=== PATIENT | female | born 1960 | race Caucasian/White ===

== ENCOUNTER → 2017-02-12 | Outpatient (CLI) | payer MEDICARE, MEDICAID ==
[~2017-02-12] MED LIST: KETOROLAC TROMETH 60MG/2ML VIAL IM ONE
[2017-02-12 09:30] VITALS: BP 165/106
[2017-02-12 11:40] VITALS: BP 173/100
[2017-02-12 17:00] LABS: Basophils # (auto) 0 uL; Basophils % (auto) 0.6 % (0.0-2.0); DEFINITIVE VIEW TRANSMISSION; Eosinophils # (auto) 0.1 uL; Eosinophils % (auto) 1.9 % (0.0-7.0); Hematocrit 32.5 % (36.0-46.0); Lymphocytes # (auto) 2.4 uL; Lymphocytes % (auto) 33.9 % (10.0-50.0); Mean Corpuscular Hemoglobin 22.9 pg (28.0-32.0); Mean Corpuscular Hgb Conc. 30.7 g/dL (32.0-36.0); Mean Corpuscular Volume 74.6 fL (80.0-100.0); Mean Platelet Volume 9.8 fL (7.4-10.4); Monocytes # (auto) 0.5 uL; Monocytes % (auto) 7.4 % (0.0-12.0); Neutrophils # (auto) 4.1 uL; Neutrophils % (auto) 56.2 % (37.0-80.0); Platelet Count (auto) 455 10^3/uL (140-450); Red Cell Distribution Width 17.5 % (11.6-16.0); White Blood Cell 7.2 10^3/uL (4.4-10.8)
[2017-02-12 17:10] LABS: Albumin 3.7 g/dL (3.4-5.0); Alkaline Phosphatase 90 U/L (45-117); Anion Gap 10 (5-15); Aspartate Aminotransferase 12 U/L (15-37); BUN/Creatinine Ratio 26.7; Bilirubin, Direct < 0.1 mg/dL (0-0.2); Bilirubin, Total 0.2 mg/dL (0.2-1.0); Blood Urea Nitrogen 12 mg/dL (7-18); Calcium 8.8 mg/dL (8.5-10.1); Carbon Dioxide 27 mmol/L (21-32); Chloride 105 mmol/L (98-107); Cholesterol 162 mg/dL (< 200); GFR African American 187 mL/min; GFR Non-African American 154 mL/min; Glucose 82 mg/dL (74-106); HDL Cholesterol 46 mg/dL (40-59); LDL Cholesterol 114 mg/dL (< 100); Potassium 4.2 mmol/L (3.5-5.1); Sodium 142 mmol/L (136-145); Total Protein 7.8 g/dL (6.4-8.2); Triglycerides 123 mg/dL (< 150)
== END | disposition home or self-care (01) ==
LOC: CHF HDHVI 09:38
PROVIDERS: ATTEND Internal Medicine Cardiovascular Disease
DX: I10 Essential (primary) hypertension (principal); E78.00 Pure hypercholesterolemia, unspecified; K74.1 Hepatic sclerosis; E11.9 Type 2 diabetes mellitus without complications; E03.9 Hypothyroidism, unspecified; D64.9 Anemia, unspecified; E55.9 Vitamin D deficiency, unspecified; R89.9 Unspecified abnormal finding in specimens from other organs, systems and tissues
CPT/HCPCS: 36415; 80048; 80061; 80076; 82306; 83036; 84443; 85025; 87205; J1885

== ENCOUNTER → 2017-06-04 | Outpatient (CLI) | payer MEDICARE, OTHER ==
[~2017-06-04] MED LIST changes: +BACITRACIN TOP OINT 1 UD PKG TOP ONE; -KETOROLAC TROMETH 60MG/2ML VIAL IM ONE; +MUPIROCIN 2% OINT 22GM ONE
[2017-06-04 15:05] VITALS: BP 153/83
[2017-06-04 17:37] VITALS: BP 148/86
== END | disposition home or self-care (01) ==
LOC: CHF HDHVI 15:03
PROVIDERS: ATTEND Internal Medicine Cardiovascular Disease
DX: I11.0 Hypertensive heart disease with heart failure (principal); I50.9 Heart failure, unspecified; E11.9 Type 2 diabetes mellitus without complications
CPT/HCPCS: G0463

== ENCOUNTER → 2017-10-29 | Outpatient (CLI) | payer MEDICARE, OTHER ==
[2017-10-29 11:46] LABS: Basophils # (auto) 0.1 uL; Basophils % (auto) 1.4 % (0.0-2.0); Eosinophils # (auto) 0.2 uL; Hematocrit 41.9 % (36.0-46.0); Hemoglobin 13.5 g/dL (12.2-16.2); Lymphocytes # (auto) 1.9 uL; Lymphocytes % (auto) 34.6 % (10.0-50.0); Mean Corpuscular Hemoglobin 30.9 pg (28.0-32.0); Mean Corpuscular Hgb Conc. 32.3 g/dL (32.0-36.0); Mean Corpuscular Volume 95.6 fL (80.0-100.0); Monocytes # (auto) 0.4 uL; Monocytes % (auto) 6.7 % (0.0-12.0); Neutrophils % (auto) 54.3 % (37.0-80.0); Nucleated Red Blood Cells % 0.7 %; Platelet Count (auto) 238 10^3/uL (140-450); Red Blood Cells 4.38 10^6/uL (4.0-5.20); Red Cell Distribution Width 13.5 % (11.8-14.3); White Blood Cell 5.6 10^3/uL (4.4-10.8)
[2017-10-29 12:06] LABS: % Iron Saturation 34.2 % (15-50)
== END | disposition home or self-care (01) ==
LOC: LAB 08:34
PROVIDERS: ATTEND Internal Medicine Cardiovascular Disease
DX: D64.9 Anemia, unspecified (principal); R79.89 Other specified abnormal findings of blood chemistry; E61.1 Iron deficiency
CPT/HCPCS: 36415; 82728; 83540; 83550; 85025

== ENCOUNTER → 2018-02-06 | Outpatient (CLI) | payer MEDICARE, OTHER ==
[2018-02-06 15:52] LABS: Basophils # (auto) 0.1 uL; Basophils % (auto) 0.9 % (0.0-2.0); Eosinophils # (auto) 0.2 uL; Eosinophils % (auto) 3.2 % (0.0-7.0); Hematocrit 39.7 % (36.0-46.0); Hemoglobin 12.7 g/dL (12.2-16.2); Lymphocytes # (auto) 2.4 uL; Lymphocytes % (auto) 31.1 % (10.0-50.0); Mean Corpuscular Hemoglobin 30.5 pg (28.0-32.0); Mean Corpuscular Hgb Conc. 31.9 g/dL (32.0-36.0); Mean Corpuscular Volume 95.5 fL (80.0-100.0); Monocytes # (auto) 0.6 uL; Monocytes % (auto) 7.2 % (0.0-12.0); Neutrophils # (auto) 4.5 uL; Neutrophils % (auto) 57.6 % (37.0-80.0); Nucleated Red Blood Cells % 0.3 %; Platelet Count (auto) 233 10^3/uL (140-450); Red Blood Cells 4.16 10^6/uL (4.0-5.20); Red Cell Distribution Width 13.6 % (11.8-14.3); White Blood Cell 7.7 10^3/uL (4.4-10.8)
[2018-02-06 16:05] LABS: Albumin 3.4 g/dL (3.4-5.0); Bilirubin, Total 0.2 mg/dL (0.2-1.0); Potassium 4.4 mmol/L (3.5-5.1); Total Protein 7.5 g/dL (6.4-8.2)
== END | disposition home or self-care (01) ==
LOC: LAB 11:33
PROVIDERS: ATTEND Internal Medicine
DX: I10 Essential (primary) hypertension (principal); D64.9 Anemia, unspecified; E11.9 Type 2 diabetes mellitus without complications; E78.00 Pure hypercholesterolemia, unspecified; E03.9 Hypothyroidism, unspecified
CPT/HCPCS: 36415; 80053; 85025

== ENCOUNTER → 2018-05-29 | Outpatient (CLI) | payer MEDICARE, OTHER ==
[2018-05-29 18:00] VITALS: BP 136/84
== END | disposition home or self-care (01) ==
LOC: CHF HDHVI 15:59
PROVIDERS: ATTEND Internal Medicine Cardiovascular Disease
DX: E78.5 Hyperlipidemia, unspecified (principal); E66.01 Morbid (severe) obesity due to excess calories; G89.29 Other chronic pain
CPT/HCPCS: G0463

== ENCOUNTER → 2018-07-23 | Outpatient (CLI) | payer MEDICARE, MEDICAID ==
[~2018-07-23] MED LIST changes: -BACITRACIN TOP OINT 1 UD PKG TOP ONE; +IOHEXOL 350 MG/ML 100ML IJ ONE; -MUPIROCIN 2% OINT 22GM ONE
[2018-07-23 12:45] VITALS: BP 170/92
[2018-07-23 13:22] VITALS: BP 160/95
== END | disposition home or self-care (01) ==
LOC: Rad HDHVI 12:36
PROVIDERS: ATTEND Internal Medicine Cardiovascular Disease
DX: M19.011 Primary osteoarthritis, right shoulder (principal); M50.822 Other cervical disc disorders at C5-C6 level
CPT/HCPCS: 70491; 82565; G0463; Q9967

== ENCOUNTER → 2018-12-02 | Outpatient (CLI) | payer MEDICARE, MEDICAID | END | disposition home or self-care (01) | LOC: Rad HDHVI 12:40 | PROVIDERS: ATTEND Internal Medicine Cardiovascular Disease | DX: I20.9 Angina pectoris, unspecified (principal); I10 Essential (primary) hypertension | CPT/HCPCS: 93306 ==

== ENCOUNTER → 2019-12-01 | Outpatient (CLI) | payer MEDICARE, MEDICAID | END | disposition home or self-care (01) | LOC: Rad HDHVI 09:46 | PROVIDERS: ATTEND Internal Medicine | DX: I70.0 Atherosclerosis of aorta (principal); M85.88 Other specified disorders of bone density and structure, other site; I51.7 Cardiomegaly; R09.89 Other specified symptoms and signs involving the circulatory and respiratory systems | CPT/HCPCS: 71046 ==

== ENCOUNTER → 2019-12-09 | Outpatient (CLI) | payer MEDICARE, MEDICAID | END | disposition home or self-care (01) | LOC: Rad HDHVI 10:25 | PROVIDERS: ATTEND Internal Medicine | DX: I70.0 Atherosclerosis of aorta (principal); R06.02 Shortness of breath; R42 Dizziness and giddiness; M25.562 Pain in left knee; M25.561 Pain in right knee; R09.89 Other specified symptoms and signs involving the circulatory and respiratory systems; I51.7 Cardiomegaly; M46.00 Spinal enthesopathy, site unspecified | CPT/HCPCS: 71046 ==

== ENCOUNTER → 2020-05-09 | Outpatient (CLI) | payer MEDICARE, OTHER | END | disposition home or self-care (01) | LOC: Rad HDHVI 09:21 | PROVIDERS: ATTEND Internal Medicine Cardiovascular Disease | DX: S82.102A Unspecified fracture of upper end of left tibia, initial encounter for closed fracture (principal); M17.12 Unilateral primary osteoarthritis, left knee; M25.562 Pain in left knee; G47.39 Other sleep apnea; X58.XXXA Exposure to other specified factors, initial encounter; Y93.89 Activity, other specified; Y92.89 Other specified places as the place of occurrence of the external cause; Y99.8 Other external cause status; M25.462 Effusion, left knee; M79.89 Other specified soft tissue disorders | CPT/HCPCS: 73700 ==

== ENCOUNTER → 2020-12-26 | Outpatient (CLI) | payer MEDICARE, OTHER | END | disposition home or self-care (01) | LOC: Rad HDHVI 08:37 | PROVIDERS: ATTEND Internal Medicine Cardiovascular Disease | DX: I35.1 Nonrheumatic aortic (valve) insufficiency (principal); I50.33 Acute on chronic diastolic (congestive) heart failure; R00.2 Palpitations | CPT/HCPCS: 93306 ==

== ENCOUNTER → 2022-11-06 | Outpatient (CLI) | payer MEDICARE, MEDICAID ==
[~2022-11-06] MED LIST changes: -IOHEXOL 350 MG/ML 100ML IJ ONE; +READI-CAT 2 (BARIUM SULF)(VANILLA SMOOTHIE) 450ML ONE
[2022-11-06 12:01] LABS: Basophils # (auto) 0.1 10 ^3/uL (0-0.2); Basophils % (auto) 0.8 % (0.0-2.0); Eosinophils # (auto) 0.2 10 ^3/uL (0-0.8); Eosinophils % (auto) 2.5 % (0.0-7.0); Hematocrit 41.9 % (36.0-46.0); Hemoglobin 13.6 g/dL (12.2-16.2); Lymphocytes # (auto) 2.1 10 ^3/uL (0.4-5.4); Mean Corpuscular Hemoglobin 30.6 pg (28.0-32.0); Mean Corpuscular Hgb Conc. 32.4 g/dL (32.0-36.0); Mean Corpuscular Volume 94.5 fL (80.0-100.0); Monocytes # (auto) 0.5 10 ^3/uL (0-1.3); Monocytes % (auto) 7.4 % (0.0-12.0); Neutrophils # (auto) 4.1 10 ^3/uL (1.6-8.6); Neutrophils % (auto) 59.3 % (37.0-80.0); Nucleated Red Blood Cells % 0.1 %; Red Blood Cells 4.44 10^6/uL (4.0-5.20); Red Cell Distribution Width 13.9 % (11.8-14.3); White Blood Cell 6.9 10^3/uL (4.4-10.8)
[2022-11-06 15:15] LABS: Potassium 3.9 mmol/L (3.5-5.1)
[2022-11-06 15:28] LABS: Albumin 3.5 g/dL (3.4-5.0); BUN/Creatinine Ratio 17.4; Bilirubin, Total 0.4 mg/dL (0.2-1.0); Calcium 8.6 mg/dL (8.5-10.1)
[2022-11-06 17:42] LABS: Free T4 (Free Thyroxine) 1.38 ng/dL (0.89-1.76)
== END | disposition home or self-care (01) ==
LOC: Rad HDHVI 09:16
PROVIDERS: ATTEND Internal Medicine Cardiovascular Disease
DX: E78.00 Pure hypercholesterolemia, unspecified (principal); E55.9 Vitamin D deficiency, unspecified
CPT/HCPCS: 36415; 80053; 80061; 82306; 82607; 83036; 84439; 84443; 85025

== ENCOUNTER → 2023-01-02 | Outpatient (CLI) | payer MEDICARE, OTHER ==
[~2023-01-02] MED LIST changes: +FUROSEMIDE 100 MG/10ML VIAL IV ONE; +FUROSEMIDE 20 MG/2 ML VIAL ONE; +FUROSEMIDE INJECTION 10 ML ONE; +POTASSIUM CHL 20 Meq TABLET PO ONE; -READI-CAT 2 (BARIUM SULF)(VANILLA SMOOTHIE) 450ML ONE
[2023-01-02 14:15] VITALS: BP 145/62
[2023-01-02 15:05] VITALS: BP 145/62
== END | disposition home or self-care (01) ==
LOC: CHF HDHVI 14:18
PROVIDERS: ATTEND Internal Medicine Cardiovascular Disease
DX: E87.70 Fluid overload, unspecified (principal); E78.00 Pure hypercholesterolemia, unspecified
CPT/HCPCS: 96374; G0463; J1940

== ENCOUNTER 2023-05-10 08:54 | Inpatient (IN) | payer MEDICARE, OTHER ==
[~2023-05-10] VITALS: Ht 170.2 cm; Wt 120.8 kg
[~2023-05-10 08:54] MED LIST changes: +CHOL4POW44 PO; +DICL1GEL73 TOP; +ELUX1TAB2 PO; +FURO40TA4 PO; -FUROSEMIDE 100 MG/10ML VIAL IV ONE; -FUROSEMIDE 20 MG/2 ML VIAL ONE; -FUROSEMIDE INJECTION 10 ML ONE; +LEVO175T4 PO; +METO-517 PO; +MIRA50TA OR; +PANC3600; -POTASSIUM CHL 20 Meq TABLET PO ONE
[2023-05-10] MEDS ORDERED: SODIUM CHLORIDE 0.9% 1,000 ML IV ONE ×2 (09:30→17:45)
[2023-05-10] MEDS ORDERED: levoFLOXacin 750MG 150 ML IV ONE (09:30)
[2023-05-10 10:00] VITALS: PULSE 105; RESP 16; O2SAT 96
[2023-05-10 10:52] LABS: Basophils # (auto) 0.1 10 ^3/uL (0-0.2); Basophils % (auto) 0.6 % (0.0-2.0); Eosinophils # (auto) 0 10 ^3/uL (0-0.8); Eosinophils % (auto) 0.1 % (0.0-7.0); Hematocrit 46.7 % (36.0-46.0); Hemoglobin 15.3 g/dL (12.2-16.2); Lymphocytes % (auto) 21.1 % (10.0-50.0); Mean Corpuscular Hemoglobin 30.8 pg (28.0-32.0); Mean Corpuscular Hgb Conc. 32.7 g/dL (32.0-36.0); Mean Corpuscular Volume 94.2 fL (80.0-100.0); Monocytes # (auto) 0.7 10 ^3/uL (0-1.3); Monocytes % (auto) 5.1 % (0.0-12.0); Neutrophils # (auto) 10.5 10 ^3/uL (1.6-8.6); Neutrophils % (auto) 73.1 % (37.0-80.0); Nucleated Red Blood Cells % 0.1 %; Red Blood Cells 4.96 10^6/uL (4.0-5.20); White Blood Cell 14.3 10^3/uL (4.4-10.8)
[2023-05-10 11:17] LABS: Urine Bacteria MOD /hpf (None Seen); Urine Blood Negative /uL (Negative); Urine Clarity CLOUDY (Clear); Urine Color Yellow (Yellow); Urine Mucus FEW (None Seen); Urine Protein, UAD 2+ (Negative); Urine Specific Gravity 1.025 (1.001-1.035); Urine Urobilinogen Normal (Negative); Urine WBC 185 /hpf (0 - 5); Urine WBC Clumps PRESENT /hpf (None Seen)
[2023-05-10 12:09] LABS: Alkaline Phosphatase 182 U/L (45-117); Anion Gap 17 (5-15); Aspartate Aminotransferase 68 U/L (15-37); BUN/Creatinine Ratio 10.2 (10.0-20.0); Blood Urea Nitrogen 32 mg/dL (7-18); Carbon Dioxide 25 mmol/L (21-32); Chloride 79 mmol/L (98-107); GFR African American 19 mL/min; GFR Non-African American 16 mL/min; Glucose 158 mg/dL (74-106); Potassium 3.4 mmol/L (3.5-5.1); Sodium 121 mmol/L (136-145)
[2023-05-10 12:10] LABS: Alanine Aminotransferase 33 U/L (13-56); Albumin 2.1 g/dL (3.4-5.0); Bilirubin, Total 0.6 mg/dL (0.2-1.0); Calcium 7.9 mg/dL (8.5-10.1); Total Protein 6.5 g/dL (6.4-8.2)
[2023-05-10] MEDS ORDERED: HYDR-4795 PO (12:20)
[2023-05-10] MEDS ORDERED: METOCLOPRAMIDE HCL 5MG/ml INJ 2ml VIAL IV ONE (13:15)
[2023-05-10] MEDS ORDERED: LINA290C OR (14:44)
[2023-05-10] MEDS ORDERED: PANT40TA2 PO (14:44)
[2023-05-10] MEDS ORDERED: LEVO175T2 PO (14:44)
[2023-05-10] MEDS ORDERED: BUMEX2MG PO (14:44)
[2023-05-10] MEDS ORDERED: PANC12002 PO (14:44)
[2023-05-10] MEDS ORDERED: ACETAMINOPHEN 325 MG TAB PO PRN (17:45)
[2023-05-10] MEDS ORDERED: DOCUSATE SOD 100 MG CAP PO PRN (17:45)
[2023-05-10] MEDS ORDERED: VANCOMYCIN 1GM/250ML 250 ML IV ONE (18:00)
[2023-05-10] MEDS ORDERED: VANCOMYCIN PER PHARMACY 0 MG IV SCH (18:00)
[2023-05-10] MEDS: NOREPINEPHRINE 8 MG/250ML KIT 250 ML IV SCH (18:15)
[2023-05-10 18:57] LABS: BUN/Creatinine Ratio 10.2 (10.0-20.0); Calcium 7.9 mg/dL (8.5-10.1)
[2023-05-10 19:13] LABS: Lactic Acid w/Reflex 4.7 mmol/L (0.4-2.0)
[2023-05-10 19:27] LABS: Potassium 1.9 mmol/L (3.5-5.1)
[2023-05-10 19:30] VITALS: PULSE 132; RESP 19; O2SAT 96
[2023-05-10 19:42] VITALS: PULSE 20; RESP 18; O2SAT 96
[2023-05-10] MEDS: HYDROmorphone HCL 2 MG/ML VL/or syr IV PRN (19:44)
[2023-05-10] MEDS ORDERED: POTASSIUM EFFERVESENT TAB 25 MEQ PO ONE (19:45)
[2023-05-10] MEDS: ONDANSETRON HCL 4 MG/2 ML VIAL IV PRN (19:45)
[2023-05-10] MEDS ORDERED: MAGNESIUM SULFATE 1GM/100ML 100 ML IV ONE (19:45)
[2023-05-10] MEDS: POTASSIUM CHL 20MEQ/100ML 100 ML IV SCH ×2 (20:20→21:57)
[2023-05-10] MEDS: ALBUMIN 25% 50 ML IV SCH (21:43)
[2023-05-10] MEDS: ELUXADOLINE 100 MG PO SCH (22:00)
[2023-05-10 22:10] LABS: Calcium 7.6 mg/dL (8.5-10.1); Magnesium 1.9 mg/dL (1.6-2.6)
[2023-05-10 22:12] LABS: BUN/Creatinine Ratio 9.9 (10.0-20.0)
[2023-05-10] MEDS: PIPERACILLIN-TAZOB 3.375GM 100 ML IV SCH (22:24)
[2023-05-10 22:46] LABS: Potassium 2.9 mmol/L (3.5-5.1)
[2023-05-10] MEDS: SODIUM CHLOR 0.9% PF (SALINE LOCK) 10ML VIAL/SYR IV SCH (22:51)
[2023-05-11] VITALS (35 sets, daily range): BP systolic 81–107; BP diastolic 52–77; PULSE 100–118; RESP 12–31; TEMP 97.9–98.6; O2SAT 95–99
[2023-05-11] MEDS: ONDANSETRON HCL 4 MG/2 ML VIAL IV PRN ×2 (00:26→15:56)
[2023-05-11] MEDS: HYDROmorphone HCL 2 MG/ML VL/or syr IV PRN ×2 (00:27→21:43)
[2023-05-11] MEDS ORDERED: VANCOMYCIN 1GM/250ML 250 ML IV ONE (00:30)
[2023-05-11 01:29] LABS: Albumin 2.5 g/dL (3.4-5.0); BUN/Creatinine Ratio 10.2 (10.0-20.0); Calcium 7.6 mg/dL (8.5-10.1)
[2023-05-11 01:31] LABS: Bilirubin, Total 0.8 mg/dL (0.2-1.0); Total Protein 6.6 g/dL (6.4-8.2)
[2023-05-11 01:33] LABS: Potassium 2.2 mmol/L (3.5-5.1)
[2023-05-11] MEDS: POTASSIUM CHL 20MEQ/100ML 100 ML IV SCH ×3 (01:50→05:45)
[2023-05-11] MEDS: LORazepam 2MG/ML-1ML VIAL IV PRN ×2 (02:06→15:55)
[2023-05-11] MEDS: ALBUMIN 25% 50 ML IV SCH ×2 (02:21→09:32)
[2023-05-11] MEDS: NOREPINEPHRINE 8 MG/250ML KIT 250 ML IV SCH ×2 (03:47→19:27)
[2023-05-11] MEDS: SODIUM CHLOR 0.9% PF (SALINE LOCK) 10ML VIAL/SYR IV SCH ×3 (05:53→21:33)
[2023-05-11] MEDS: LEVOTHYROXINE SODIUM 25 MCG TAB PO SCH (06:28)
[2023-05-11] MEDS: LEVOTHYROXINE SODIUM 100 MCG TAB PO SCH (06:29)
[2023-05-11] MEDS ORDERED: LEVOTHYROXINE SODIUM 112 MCG TAB PO SCH (07:00)
[2023-05-11] MEDS ORDERED: LEVOTHYROXINE SODIUM 50 MCG TAB PO SCH (07:00)
[2023-05-11 08:26] LABS: BUN/Creatinine Ratio 10.6 (10.0-20.0); Calcium 7.7 mg/dL (8.5-10.1)
[2023-05-11 08:42] LABS: Potassium 2.7 mmol/L (3.5-5.1)
[2023-05-11] MEDS: PIPERACILLIN-TAZOB 3.375GM 100 ML IV SCH ×2 (09:31→21:45)
[2023-05-11] MEDS: ENOXAPARIN SOD 30 MG/0.3 ML SYRINGE SC SCH (09:32)
[2023-05-11] MEDS: SODIUM CHLORIDE 0.9% 1,000 ML IV SCH (09:45)
[2023-05-11] MEDS: ELUXADOLINE 100 MG PO SCH ×2 (10:00→21:48)
[2023-05-11] MEDS: POTASSIUM EFFERVESENT TAB 25 MEQ PO SCH ×2 (10:55→21:23)
[2023-05-11 20:27] LABS: BUN/Creatinine Ratio 10.4 (10.0-20.0); Calcium 7.2 mg/dL (8.5-10.1)
[2023-05-11 20:32] LABS: Potassium 2.9 mmol/L (3.5-5.1)
[2023-05-11] MEDS ORDERED: VANCOMYCIN 500 MG in D5W 5% 100 ML IV ONE (21:00)
[2023-05-12] VITALS (101 sets, daily range): BP systolic 81–150; BP diastolic 38–115; PULSE 101–119; RESP 10–25; TEMP 97.6–98.3; O2SAT 96–100
[2023-05-12] MEDS: NOREPINEPHRINE 8 MG/250ML KIT 250 ML IV SCH ×6 (00:03→21:32)
[2023-05-12] MEDS: HYDROcodone-ACET 5/325MG TAB PO PRN ×3 (00:41→21:49)
[2023-05-12 04:05] LABS: BUN/Creatinine Ratio 11.6 (10.0-20.0); Calcium 7.5 mg/dL (8.5-10.1)
[2023-05-12] MEDS: SODIUM CHLORIDE 0.9% 1,000 ML IV SCH (04:39)
[2023-05-12] MEDS ORDERED: POTASSIUM CHL 20 Meq TABLET PO ONE ×2 (05:15→06:52)
[2023-05-12] MEDS: HYDROmorphone HCL 2 MG/ML VL/or syr IV PRN ×2 (05:35→10:14)
[2023-05-12] MEDS: LEVOTHYROXINE SODIUM 100 MCG TAB PO SCH (06:54)
[2023-05-12] MEDS: LEVOTHYROXINE SODIUM 25 MCG TAB PO SCH (06:54)
[2023-05-12] MEDS: SODIUM CHLOR 0.9% PF (SALINE LOCK) 10ML VIAL/SYR IV SCH ×3 (06:56→21:46)
[2023-05-12] MEDS: VASOPRESSIN 20 UNITS in SODIUM CHL 0.9% 99 ML IV SCH (08:19)
[2023-05-12] MEDS: ENOXAPARIN SOD 30 MG/0.3 ML SYRINGE SC SCH (09:50)
[2023-05-12] MEDS: MAGNESIUM SULFATE 1GM/100ML 100 ML IV SCH ×2 (09:50→11:05)
[2023-05-12] MEDS: PIPERACILLIN-TAZOB 3.375GM 100 ML IV SCH ×2 (09:51→21:46)
[2023-05-12] MEDS: ELUXADOLINE 100 MG PO SCH ×2 (10:00→21:46)
[2023-05-12] MEDS ORDERED: SODIUM CHLORIDE 0.9% 1,000 ML IV ONE (11:00)
[2023-05-12] MEDS: POTASSIUM CHL 20MEQ/100ML 100 ML IV SCH ×2 (11:45→13:08)
[2023-05-12] MEDS ORDERED: VANCOMYCIN 500 MG in D5W 5% 100 ML IV ONE (15:00)
[2023-05-12] MEDS: PHENYLEPHRINE INJ 40 MG in SODIUM CHL 0.9% 246 ML IV SCH (15:46)
[2023-05-13] VITALS (98 sets, daily range): BP systolic 75–146; BP diastolic 32–109; PULSE 107–122; RESP 11–33; TEMP 98–98.9; O2SAT 88–100
[2023-05-13] MEDS: VASOPRESSIN 20 UNITS in SODIUM CHL 0.9% 99 ML IV SCH ×3 (00:06→11:28)
[2023-05-13] MEDS: NOREPINEPHRINE 8 MG/250ML KIT 250 ML IV SCH ×4 (02:02→21:18)
[2023-05-13] MEDS: PHENYLEPHRINE INJ 40 MG in SODIUM CHL 0.9% 246 ML IV SCH ×4 (02:03→23:24)
[2023-05-13 04:26] LABS: Hemoglobin 13.6 g/dL (12.2-16.2); Mean Corpuscular Hemoglobin 32.2 pg (28.0-32.0); Mean Corpuscular Volume 94.8 fL (80.0-100.0); Red Blood Cells 4.22 10^6/uL (4.0-5.20); Red Cell Distribution Width 14.1 % (11.8-14.3); White Blood Cell 17.3 10^3/uL (4.4-10.8)
[2023-05-13 04:45] LABS: Band Neutrophils % (manual) 0; Basophils % (manual) 0 (0.0-2.0); Blast Cells 0; Eosinophils % (manual) 0 (0-7); Metamyelocytes % 0; Promyelocytes % 0; Reactive Lymphocytes 0
[2023-05-13] MEDS: ONDANSETRON HCL 4 MG/2 ML VIAL IV PRN ×4 (04:58→18:56)
[2023-05-13] MEDS: SODIUM CHLORIDE 0.9% 1,000 ML IV SCH (04:59)
[2023-05-13] MEDS: SODIUM CHLOR 0.9% PF (SALINE LOCK) 10ML VIAL/SYR IV SCH ×3 (06:04→21:18)
[2023-05-13] MEDS: LEVOTHYROXINE SODIUM 100 MCG TAB PO SCH (06:26)
[2023-05-13] MEDS: LEVOTHYROXINE SODIUM 25 MCG TAB PO SCH (06:26)
[2023-05-13] MEDS: HYDROcodone-ACET 5/325MG TAB PO PRN (07:54)
[2023-05-13 07:58] LABS: Lymphocytes % (manual) 12 (10.0-50.0); Monocytes % (manual) 1 (0-12); Myelocytes % 1; Platelet Estimate Adequate
[2023-05-13 08:50] LABS: Albumin 2.3 g/dL (3.4-5.0); Calcium 7.6 mg/dL (8.5-10.1); Potassium 3.7 mmol/L (3.5-5.1)
[2023-05-13 08:54] LABS: BUN/Creatinine Ratio 11.9 (10.0-20.0); Bilirubin, Total 1.4 mg/dL (0.2-1.0)
[2023-05-13] MEDS: ELUXADOLINE 100 MG PO SCH ×2 (10:00→21:33)
[2023-05-13] MEDS: ENOXAPARIN SOD 30 MG/0.3 ML SYRINGE SC SCH (10:05)
[2023-05-13] MEDS: PIPERACILLIN-TAZOB 3.375GM 100 ML IV SCH (10:05)
[2023-05-13 11:11] LABS: Creatinine, Urine 98 mg/dL (30.0-125.0); Protein, Urine 145.6 mg/dL (0.0-11.9); Urine Protein/Creatinine Ratio 1.49
[2023-05-13] MEDS ORDERED: OPTISON 3ml Vial for INJ IV ONE (11:16)
[2023-05-13] MEDS: PIPERACILLIN-TAZOB 2.25GM 50 ML IV SCH ×2 (11:44→18:55)
[2023-05-13] MEDS: MAGNESIUM SULFATE 1GM/100ML 100 ML IV SCH ×2 (11:44→13:08)
[2023-05-13] MEDS ORDERED: OXYCODONE W/ ACETAMINOPHEN 5/325MG TABLET PO PRN (13:15)
[2023-05-13] MEDS ORDERED: SODIUM CHL 3% 500 ML IV ONE ×2 (13:30→16:15)
[2023-05-13] MEDS ORDERED: HYDROcodone-ACET 7.5/325MG TAB PO PRN (17:30)
[2023-05-13] MEDS ORDERED: HYDROmorphone HCL 2 MG/ML VL/or syr IV PRN (17:30)
[2023-05-13] MEDS: HYDROCODONE ACETAMINOPHEN PO PRN (18:56)
[2023-05-13 19:11] LABS: BUN/Creatinine Ratio 12.8 (10.0-20.0); Calcium 7.3 mg/dL (8.5-10.1); Potassium 3.2 mmol/L (3.5-5.1)
[2023-05-13 19:13] LABS: Sodium Urine < 5 mmol/L (40-220)
[2023-05-13] MEDS ORDERED: POTASSIUM CHL 20 Meq TABLET PO ONE (21:15)
[2023-05-14] VITALS (96 sets, daily range): BP systolic 47–168; BP diastolic 21–106; PULSE 109–126; RESP 12–45; TEMP 97.9–98.4; O2SAT 92–100
[2023-05-14] MEDS: NOREPINEPHRINE 8 MG/250ML KIT 250 ML IV SCH ×3 (01:09→10:52)
[2023-05-14] MEDS: ONDANSETRON HCL 4 MG/2 ML VIAL IV PRN ×3 (02:11→13:50)
[2023-05-14] MEDS: HYDROCODONE ACETAMINOPHEN PO PRN ×5 (02:24→21:03)
[2023-05-14] MEDS: PIPERACILLIN-TAZOB 2.25GM 50 ML IV SCH ×3 (02:24→18:29)
[2023-05-14] MEDS ORDERED: PHENYLEPHRINE HCL 10 MG/ML VL ONE (03:55)
[2023-05-14] MEDS ORDERED: PHENYLEPHRINE IV 250 ML IV ONE ×2 (03:55→08:04)
[2023-05-14] MEDS: PHENYLEPHRINE INJ 40 MG in SODIUM CHL 0.9% 246 ML IV SCH ×2 (04:05→08:36)
[2023-05-14] MEDS: VASOPRESSIN 20 UNITS in SODIUM CHL 0.9% 99 ML IV SCH ×2 (04:13→15:20)
[2023-05-14 04:31] LABS: Basophils # (auto) 0 10 ^3/uL (0-0.2); Eosinophils # (auto) 0 10 ^3/uL (0-0.8); Hematocrit 37.3 % (36.0-46.0); Hemoglobin 12.7 g/dL (12.2-16.2); Lymphocytes # (auto) 2.2 10 ^3/uL (0.4-5.4); Lymphocytes % (auto) 13.7 % (10.0-50.0); Mean Corpuscular Hemoglobin 32.1 pg (28.0-32.0); Mean Corpuscular Volume 94.2 fL (80.0-100.0); Monocytes # (auto) 0.7 10 ^3/uL (0-1.3); Monocytes % (auto) 4.2 % (0.0-12.0); Neutrophils # (auto) 13.2 10 ^3/uL (1.6-8.6); Neutrophils % (auto) 82.1 % (37.0-80.0); Nucleated Red Blood Cells % 0.3 %; Red Blood Cells 3.96 10^6/uL (4.0-5.20); Red Cell Distribution Width 13.8 % (11.8-14.3); White Blood Cell 16.1 10^3/uL (4.4-10.8)
[2023-05-14 04:35] LABS: Potassium 3.5 mmol/L (3.5-5.1)
[2023-05-14 04:43] LABS: Albumin 2.1 g/dL (3.4-5.0); BUN/Creatinine Ratio 13.2 (10.0-20.0); Bilirubin, Total 1.6 mg/dL (0.2-1.0); Calcium 7.5 mg/dL (8.5-10.1); Magnesium 2.3 mg/dL (1.6-2.6); Total Protein 5.5 g/dL (6.4-8.2)
[2023-05-14] MEDS: LEVOTHYROXINE SODIUM 25 MCG TAB PO SCH (06:55)
[2023-05-14] MEDS: LEVOTHYROXINE SODIUM 100 MCG TAB PO SCH (06:55)
[2023-05-14] MEDS: SODIUM CHLOR 0.9% PF (SALINE LOCK) 10ML VIAL/SYR IV SCH ×3 (06:55→22:00)
[2023-05-14] MEDS: ENOXAPARIN SOD 40 MG/0.4 ML SYRINGE SC SCH (09:24)
[2023-05-14] MEDS: POTASSIUM CHL 20MEQ/100ML 100 ML IV SCH ×2 (09:25→11:38)
[2023-05-14] MEDS: BUMETANIDE 2.5mg/10ml (0.25 mg/ml) INJ IV SCH ×2 (09:26→17:34)
[2023-05-14] MEDS: ELUXADOLINE 100 MG PO SCH ×2 (10:00→22:00)
[2023-05-14] MEDS: ALBUMIN 25% 100 ML IV SCH ×2 (10:53→17:34)
[2023-05-14 11:08] LABS: Lactic Acid w/Reflex 4.9 mmol/L (0.4-2.0)
[2023-05-14] MEDS ORDERED: SOD CHL IV SCH (13:00)
[2023-05-14] MEDS: PHENYLEPHRINE INJ 80 MG in SODIUM CHL 0.9% 242 ML IV SCH ×2 (13:00→21:06)
[2023-05-14] MEDS ORDERED: SODIUM BICARBONATE IV SCH (13:00)
[2023-05-14] MEDS ORDERED: SODIUM CHL 3% 500 ML IV ONE (14:30)
[2023-05-14] MEDS: NOREPINEPHRINE BITARTRATE 32 MG in SODIUM CHL 0.9% 218 ML IV SCH (14:34)
[2023-05-14 20:08] LABS: Albumin 1.6 g/dL (3.4-5.0); Potassium 3.1 mmol/L (3.5-5.1)
[2023-05-14 20:11] LABS: BUN/Creatinine Ratio 14.4 (10.0-20.0); Bilirubin, Total 1.7 mg/dL (0.2-1.0); Total Protein 4.1 g/dL (6.4-8.2)
[2023-05-14 20:15] LABS: Calcium 5.2 mg/dL (8.5-10.1)
[2023-05-14] MEDS ORDERED: POTASSIUM CHL 20MEQ/100ML 100 ML IV ONE (21:00)
[2023-05-14] MEDS: METOCLOPRAMIDE HCL 5MG/ml INJ 2ml VIAL IV SCH (22:00)
[2023-05-15] VITALS (96 sets, daily range): BP systolic 89–130; BP diastolic 44–92; PULSE 110–127; RESP 11–32; TEMP 97.6–98.4; O2SAT 66–100
[2023-05-15] MEDS: HYDROCODONE ACETAMINOPHEN PO PRN ×6 (01:06→22:36)
[2023-05-15] MEDS: CALCIUM ACETATE 667 MG CAP PO SCH ×2 (01:27→08:50)
[2023-05-15] MEDS: ALBUMIN 25% 100 ML IV SCH (01:56)
[2023-05-15] MEDS: VASOPRESSIN 20 UNITS in SODIUM CHL 0.9% 99 ML IV SCH ×2 (02:27→13:34)
[2023-05-15 04:16] LABS: Basophils # (auto) 0 10 ^3/uL (0-0.2); Basophils % (auto) 0.2 % (0.0-2.0); Eosinophils # (auto) 0 10 ^3/uL (0-0.8); Eosinophils % (auto) 0.1 % (0.0-7.0); Lymphocytes # (auto) 1.9 10 ^3/uL (0.4-5.4); Lymphocytes % (auto) 10.7 % (10.0-50.0); Mean Corpuscular Hemoglobin 32.1 pg (28.0-32.0); Mean Corpuscular Hgb Conc. 33.4 g/dL (32.0-36.0); Mean Corpuscular Volume 95.9 fL (80.0-100.0); Monocytes # (auto) 0.9 10 ^3/uL (0-1.3); Monocytes % (auto) 5.2 % (0.0-12.0); Neutrophils % (auto) 83.8 % (37.0-80.0); Nucleated Red Blood Cells % 0.2 %; Red Blood Cells 3.76 10^6/uL (4.0-5.20); Red Cell Distribution Width 14.5 % (11.8-14.3); White Blood Cell 17.9 10^3/uL (4.4-10.8)
[2023-05-15] MEDS: PIPERACILLIN-TAZOB 2.25GM 50 ML IV SCH ×3 (04:28→18:11)
[2023-05-15] MEDS: PHENYLEPHRINE INJ 80 MG in SODIUM CHL 0.9% 242 ML IV SCH ×3 (04:28→21:59)
[2023-05-15 04:31] LABS: Potassium 4.1 mmol/L (3.5-5.1)
[2023-05-15 04:38] LABS: Albumin 3.2 g/dL (3.4-5.0); BUN/Creatinine Ratio 13.3 (10.0-20.0); Bilirubin, Total 3.5 mg/dL (0.2-1.0); Calcium 8.3 mg/dL (8.5-10.1); Magnesium 2.4 mg/dL (1.6-2.6); Phosphorus 1.8 mg/dL (2.5-4.90); Total Protein 6.5 g/dL (6.4-8.2)
[2023-05-15] MEDS: BUMETANIDE 2.5mg/10ml (0.25 mg/ml) INJ IV SCH ×2 (05:32→18:10)
[2023-05-15] MEDS: SODIUM CHLOR 0.9% PF (SALINE LOCK) 10ML VIAL/SYR IV SCH ×3 (05:32→21:58)
[2023-05-15] MEDS: METOCLOPRAMIDE HCL 5MG/ml INJ 2ml VIAL IV SCH ×3 (05:32→18:11)
[2023-05-15] MEDS: LEVOTHYROXINE SODIUM 25 MCG TAB PO SCH (06:47)
[2023-05-15] MEDS: LEVOTHYROXINE SODIUM 100 MCG TAB PO SCH (06:48)
[2023-05-15] MEDS: NOREPINEPHRINE BITARTRATE 32 MG in SODIUM CHL 0.9% 218 ML IV SCH (06:53)
[2023-05-15] MEDS ORDERED: SODIUM CHL 3% 250 ML IV ONE (08:15)
[2023-05-15] MEDS: ENOXAPARIN SOD 40 MG/0.4 ML SYRINGE SC SCH (08:50)
[2023-05-15] MEDS: ELUXADOLINE 100 MG PO SCH ×2 (08:52→21:59)
[2023-05-15] MEDS ORDERED: SODIUM PHOSPHATES 40 MEQ in D5W 5% 250 ML IV ONE (10:15)
[2023-05-15] MEDS ORDERED: VANCOMYCIN 500 MG in D5W 5% 100 ML IV ONE (15:00)
[2023-05-15 17:01] LABS: Base Excess -9.6 mmol/L (-2.0-2.0)
[2023-05-15] MEDS ORDERED: METOCLOPRAMIDE HCL 5MG/ml INJ 2ml VIAL IV ONE (21:45)
[2023-05-15] MEDS: SODIUM BICARBONATE 650 MG TAB PO SCH (21:58)
[2023-05-16] VITALS (96 sets, daily range): BP systolic 79–131; BP diastolic 50–85; PULSE 111–125; RESP 9–26; TEMP 98–98.6; O2SAT 90–100
[2023-05-16] MEDS: NOREPINEPHRINE BITARTRATE 32 MG in SODIUM CHL 0.9% 218 ML IV SCH (00:27)
[2023-05-16] MEDS: VASOPRESSIN 20 UNITS in SODIUM CHL 0.9% 99 ML IV SCH ×3 (00:41→22:55)
[2023-05-16] MEDS: HYDROCODONE ACETAMINOPHEN PO PRN ×5 (02:37→21:41)
[2023-05-16] MEDS: PIPERACILLIN-TAZOB 2.25GM 50 ML IV SCH ×3 (02:39→19:06)
[2023-05-16 04:38] LABS: Albumin 2.7 g/dL (3.4-5.0); Calcium 7.9 mg/dL (8.5-10.1); Potassium 3.8 mmol/L (3.5-5.1)
[2023-05-16 04:42] LABS: BUN/Creatinine Ratio 15.1 (10.0-20.0); Bilirubin, Total 2.6 mg/dL (0.2-1.0); Total Protein 5.7 g/dL (6.4-8.2)
[2023-05-16] MEDS: METOCLOPRAMIDE HCL 5MG/ml INJ 2ml VIAL IV SCH ×5 (05:49→21:34)
[2023-05-16] MEDS: SODIUM CHLOR 0.9% PF (SALINE LOCK) 10ML VIAL/SYR IV SCH ×3 (05:50→21:34)
[2023-05-16] MEDS: BUMETANIDE 2.5mg/10ml (0.25 mg/ml) INJ IV SCH ×2 (05:50→19:05)
[2023-05-16] MEDS: PHENYLEPHRINE INJ 80 MG in SODIUM CHL 0.9% 242 ML IV SCH ×3 (05:50→19:09)
[2023-05-16] MEDS: LEVOTHYROXINE SODIUM 100 MCG TAB PO SCH (06:39)
[2023-05-16] MEDS: LEVOTHYROXINE SODIUM 25 MCG TAB PO SCH (06:39)
[2023-05-16] MEDS: SODIUM BICARBONATE 650 MG TAB PO SCH ×2 (09:56→21:34)
[2023-05-16] MEDS: ENOXAPARIN SOD 30 MG/0.3 ML SYRINGE SC SCH (09:57)
[2023-05-16] MEDS: ELUXADOLINE 100 MG PO SCH ×2 (09:58→22:00)
[2023-05-16] MEDS ORDERED: VANCOMYCIN 500 MG in D5W 5% 100 ML IV ONE (12:00)
[2023-05-16] MEDS: CHOLESTYRAMINE 4 GM POWDER PO SCH ×2 (12:06→23:54)
[2023-05-16] MEDS ORDERED: chlorproMAZINE HCL 25 MG/1 ML AMP IM PRN (13:30)
[2023-05-17] VITALS (95 sets, daily range): BP systolic 87–133; BP diastolic 41–85; PULSE 99–119; RESP 10–30; TEMP 97.1–98; O2SAT 89–100
[2023-05-17] MEDS: METOCLOPRAMIDE HCL 5MG/ml INJ 2ml VIAL IV SCH ×4 (01:53→14:00)
[2023-05-17] MEDS: HYDROCODONE ACETAMINOPHEN PO PRN ×4 (01:53→18:30)
[2023-05-17] MEDS: PHENYLEPHRINE INJ 80 MG in SODIUM CHL 0.9% 242 ML IV SCH ×2 (02:00→16:38)
[2023-05-17] MEDS: NOREPINEPHRINE BITARTRATE 32 MG in SODIUM CHL 0.9% 218 ML IV SCH (02:01)
[2023-05-17] MEDS: PIPERACILLIN-TAZOB 2.25GM 50 ML IV SCH ×4 (03:00→19:29)
[2023-05-17] MEDS: BUMETANIDE 2.5mg/10ml (0.25 mg/ml) INJ IV SCH ×2 (06:24→18:29)
[2023-05-17] MEDS: SODIUM CHLOR 0.9% PF (SALINE LOCK) 10ML VIAL/SYR IV SCH ×3 (06:25→22:05)
[2023-05-17] MEDS: LEVOTHYROXINE SODIUM 25 MCG TAB PO SCH (06:35)
[2023-05-17] MEDS: LEVOTHYROXINE SODIUM 100 MCG TAB PO SCH (06:35)
[2023-05-17] MEDS: ELUXADOLINE 100 MG PO SCH ×2 (10:00→22:00)
[2023-05-17] MEDS: VASOPRESSIN 20 UNITS in SODIUM CHL 0.9% 99 ML IV SCH ×2 (10:02→21:09)
[2023-05-17] MEDS: ENOXAPARIN SOD 30 MG/0.3 ML SYRINGE SC SCH (10:21)
[2023-05-17] MEDS: SODIUM BICARBONATE 650 MG TAB PO SCH ×2 (10:21→22:05)
[2023-05-17] MEDS: CHOLESTYRAMINE 4 GM POWDER PO SCH ×2 (11:37→23:18)
[2023-05-17 15:37] LABS: Albumin 2.2 g/dL (3.4-5.0); Potassium 4.5 mmol/L (3.5-5.1)
[2023-05-17 15:42] LABS: BUN/Creatinine Ratio 17.5 (10.0-20.0); Bilirubin, Total 2.3 mg/dL (0.2-1.0); Total Protein 5.4 g/dL (6.4-8.2)
[2023-05-17] MEDS: NYSTATIN (MOUTH-THROAT) 500,000 UNITS/5 ML SUSP MT SCH ×2 (18:27→22:04)
[2023-05-17] MEDS: METOCLOPRAMIDE HCL 5MG/ml INJ 2ml VIAL IV PRN (18:29)
[2023-05-17] MEDS ORDERED: VANCOMYCIN 500 MG in D5W 5% 100 ML IV ONE (20:00)
[2023-05-18] VITALS (96 sets, daily range): BP systolic 84–143; BP diastolic 37–121; PULSE 98–109; RESP 11–38; TEMP 97.6–98.1; O2SAT 77–100
[2023-05-18] MEDS: PHENYLEPHRINE INJ 80 MG in SODIUM CHL 0.9% 242 ML IV SCH ×3 (01:01→23:13)
[2023-05-18] MEDS: HYDROCODONE ACETAMINOPHEN PO PRN ×3 (02:03→17:35)
[2023-05-18] MEDS: METOCLOPRAMIDE HCL 5MG/ml INJ 2ml VIAL IV PRN ×3 (02:30→17:35)
[2023-05-18] MEDS: PIPERACILLIN-TAZOB 2.25GM 50 ML IV SCH ×2 (02:55→11:02)
[2023-05-18 04:46] LABS: Hematocrit 33.6 % (36.0-46.0); Hemoglobin 11.3 g/dL (12.2-16.2); Mean Corpuscular Hemoglobin 31.7 pg (28.0-32.0); Mean Corpuscular Hgb Conc. 33.5 g/dL (32.0-36.0); Mean Corpuscular Volume 94.6 fL (80.0-100.0); Red Blood Cells 3.55 10^6/uL (4.0-5.20); Red Cell Distribution Width 14.5 % (11.8-14.3); White Blood Cell 14.7 10^3/uL (4.4-10.8)
[2023-05-18 04:58] LABS: Anion Gap 14 (5-15); BUN/Creatinine Ratio 20.3 (10.0-20.0); Blood Urea Nitrogen 47 mg/dL (7-18); Carbon Dioxide 20 mmol/L (21-32); Chloride 97 mmol/L (98-107); GFR African American 28 mL/min; GFR Non-African American 23 mL/min; Glucose 148 mg/dL (74-106); Potassium 3.8 mmol/L (3.5-5.1); Sodium 131 mmol/L (136-145)
[2023-05-18 05:16] LABS: Basophils % (manual) 0 (0.0-2.0); Blast Cells 0; Eosinophils % (manual) 0 (0-7); Metamyelocytes % 0; Myelocytes % 0; Promyelocytes % 0; Reactive Lymphocytes 0
[2023-05-18] MEDS: NOREPINEPHRINE BITARTRATE 32 MG in SODIUM CHL 0.9% 218 ML IV SCH (05:50)
[2023-05-18] MEDS: SODIUM CHLOR 0.9% PF (SALINE LOCK) 10ML VIAL/SYR IV SCH ×3 (05:53→21:51)
[2023-05-18] MEDS: NYSTATIN (MOUTH-THROAT) 500,000 UNITS/5 ML SUSP MT SCH ×4 (06:11→21:51)
[2023-05-18] MEDS: BUMETANIDE 2.5mg/10ml (0.25 mg/ml) INJ IV SCH ×2 (06:12→17:35)
[2023-05-18] MEDS: LEVOTHYROXINE SODIUM 100 MCG TAB PO SCH (06:15)
[2023-05-18] MEDS: LEVOTHYROXINE SODIUM 25 MCG TAB PO SCH (06:15)
[2023-05-18 06:47] LABS: Band Neutrophils % (manual) 3; Lymphocytes % (manual) 16 (10.0-50.0); Monocytes % (manual) 6 (0-12)
[2023-05-18 06:48] LABS: Anisocytosis Slight; Hypochromia Slight; Platelet Estimate Adequate
[2023-05-18] MEDS: VASOPRESSIN 20 UNITS in SODIUM CHL 0.9% 99 ML IV SCH ×2 (08:16→18:55)
[2023-05-18] MEDS: ELUXADOLINE 100 MG PO SCH ×2 (09:27→21:42)
[2023-05-18] MEDS: SODIUM BICARBONATE 650 MG TAB PO SCH ×2 (09:58→21:51)
[2023-05-18] MEDS: ENOXAPARIN SOD 30 MG/0.3 ML SYRINGE SC SCH (09:59)
[2023-05-18] MEDS: CHOLESTYRAMINE 4 GM POWDER PO SCH ×2 (11:02→23:00)
[2023-05-18] MEDS: PIPERACILLIN-TAZOB 3.375GM 100 ML IV SCH (17:35)
[2023-05-19] VITALS (101 sets, daily range): BP systolic 87–138; BP diastolic 51–99; PULSE 97–115; RESP 10–25; TEMP 97.6–98.2; O2SAT 97–100
[2023-05-19] MEDS: PIPERACILLIN-TAZOB 3.375GM 100 ML IV SCH ×3 (02:21→17:50)
[2023-05-19] MEDS: HYDROCODONE ACETAMINOPHEN PO PRN ×3 (02:51→20:34)
[2023-05-19] MEDS: METOCLOPRAMIDE HCL 5MG/ml INJ 2ml VIAL IV PRN ×3 (02:51→20:33)
[2023-05-19 03:56] LABS: Hematocrit 32.9 % (36.0-46.0); Hemoglobin 11.1 g/dL (12.2-16.2); Mean Corpuscular Hemoglobin 31.9 pg (28.0-32.0); Mean Corpuscular Hgb Conc. 33.7 g/dL (32.0-36.0); Mean Corpuscular Volume 94.7 fL (80.0-100.0); Red Blood Cells 3.48 10^6/uL (4.0-5.20); Red Cell Distribution Width 14.5 % (11.8-14.3); White Blood Cell 12.2 10^3/uL (4.4-10.8)
[2023-05-19 03:59] LABS: Basophils % (manual) 0 (0.0-2.0); Blast Cells 0; Metamyelocytes % 0; Myelocytes % 0; Promyelocytes % 0; Reactive Lymphocytes 0
[2023-05-19 04:08] LABS: BUN/Creatinine Ratio 24.9 (10.0-20.0); Calcium 7.7 mg/dL (8.5-10.1); Potassium 3.2 mmol/L (3.5-5.1)
[2023-05-19] MEDS: SODIUM CHLOR 0.9% PF (SALINE LOCK) 10ML VIAL/SYR IV SCH ×3 (06:16→21:56)
[2023-05-19] MEDS: VASOPRESSIN 20 UNITS in SODIUM CHL 0.9% 99 ML IV SCH ×2 (06:16→17:37)
[2023-05-19] MEDS: BUMETANIDE 2.5mg/10ml (0.25 mg/ml) INJ IV SCH ×2 (06:16→17:50)
[2023-05-19] MEDS: NYSTATIN (MOUTH-THROAT) 500,000 UNITS/5 ML SUSP MT SCH ×4 (06:16→21:55)
[2023-05-19] MEDS: LEVOTHYROXINE SODIUM 100 MCG TAB PO SCH (06:17)
[2023-05-19] MEDS: LEVOTHYROXINE SODIUM 25 MCG TAB PO SCH (06:17)
[2023-05-19 07:34] LABS: Band Neutrophils % (manual) 7; Eosinophils % (manual) 1 (0-7); Lymphocytes % (manual) 8 (10.0-50.0); Monocytes % (manual) 4 (0-12)
[2023-05-19 07:35] LABS: Platelet Estimate Adequate
[2023-05-19] MEDS: PHENYLEPHRINE INJ 80 MG in SODIUM CHL 0.9% 242 ML IV SCH (09:16)
[2023-05-19] MEDS: NOREPINEPHRINE BITARTRATE 32 MG in SODIUM CHL 0.9% 218 ML IV SCH (09:19)
[2023-05-19] MEDS: ELUXADOLINE 100 MG PO SCH ×2 (10:00→21:56)
[2023-05-19] MEDS: ENOXAPARIN SOD 30 MG/0.3 ML SYRINGE SC SCH (10:26)
[2023-05-19] MEDS: CHOLESTYRAMINE 4 GM POWDER PO SCH ×2 (10:26→23:25)
[2023-05-19] MEDS: SODIUM BICARBONATE 650 MG TAB PO SCH ×2 (10:26→21:55)
[2023-05-19] MEDS ORDERED: VANCOMYCIN 500 MG in D5W 5% 100 ML IV ONE ×2 (11:00→14:15)
[2023-05-19] MEDS ORDERED: POTASSIUM CHL 20 Meq TABLET PO ONE (14:00)
[2023-05-20] VITALS (120 sets, daily range): BP systolic 75–141; BP diastolic 28–89; PULSE 93–115; RESP 8–34; TEMP 98.9–99.2; O2SAT 90–100
[2023-05-20] MEDS: PIPERACILLIN-TAZOB 3.375GM 100 ML IV SCH ×3 (01:38→18:05)
[2023-05-20] MEDS: HYDROCODONE ACETAMINOPHEN PO PRN ×3 (01:56→15:06)
[2023-05-20] MEDS: METOCLOPRAMIDE HCL 5MG/ml INJ 2ml VIAL IV PRN ×4 (03:12→22:11)
[2023-05-20 04:33] LABS: Calcium 7.7 mg/dL (8.5-10.1)
[2023-05-20 04:36] LABS: BUN/Creatinine Ratio 28.1 (10.0-20.0)
[2023-05-20] MEDS: VASOPRESSIN 20 UNITS in SODIUM CHL 0.9% 99 ML IV SCH ×2 (04:44→15:51)
[2023-05-20] MEDS: NYSTATIN (MOUTH-THROAT) 500,000 UNITS/5 ML SUSP MT SCH ×5 (06:12→22:10)
[2023-05-20] MEDS: BUMETANIDE 2.5mg/10ml (0.25 mg/ml) INJ IV SCH (06:12)
[2023-05-20] MEDS: SODIUM CHLOR 0.9% PF (SALINE LOCK) 10ML VIAL/SYR IV SCH ×3 (06:13→22:10)
[2023-05-20] MEDS: LEVOTHYROXINE SODIUM 100 MCG TAB PO SCH (06:13)
[2023-05-20] MEDS: LEVOTHYROXINE SODIUM 25 MCG TAB PO SCH (06:13)
[2023-05-20] MEDS ORDERED: POTASSIUM EFFERVESENT TAB 25 MEQ PO ONE (09:00)
[2023-05-20] MEDS: POTASSIUM CHL 20 Meq TABLET PO SCH (09:18)
[2023-05-20] MEDS: SODIUM BICARBONATE 650 MG TAB PO SCH ×2 (09:18→22:11)
[2023-05-20] MEDS: ENOXAPARIN SOD 30 MG/0.3 ML SYRINGE SC SCH (09:19)
[2023-05-20] MEDS: ELUXADOLINE 100 MG PO SCH ×2 (09:20→22:00)
[2023-05-20] MEDS: CHOLESTYRAMINE 4 GM POWDER PO SCH ×2 (12:49→22:35)
[2023-05-20] MEDS: PHENYLEPHRINE INJ 80 MG in SODIUM CHL 0.9% 242 ML IV SCH (13:00)
[2023-05-20] MEDS: NOREPINEPHRINE BITARTRATE 32 MG in SODIUM CHL 0.9% 218 ML IV SCH (15:04)
[2023-05-20] MEDS: VANCOMYCIN 500 MG in D5W 5% 100 ML IV SCH (16:56)
[2023-05-20] MEDS: FUROSEMIDE INJECTION 100 MG in D5W 5% 100 ML IV SCH ×2 (18:05→22:15)
[2023-05-20] MEDS: FLUDROCORTISONE ACETATE 0.1 MG TAB PO SCH (22:11)
[2023-05-20] MEDS: HYDROmorphone HCL 2 MG/ML VL/or syr IV PRN (22:12)
[2023-05-21] VITALS (96 sets, daily range): BP systolic 63–114; BP diastolic 40–69; PULSE 92–106; RESP 10–23; TEMP 97.4–99.9; O2SAT 85–100
[2023-05-21] MEDS: PIPERACILLIN-TAZOB 3.375GM 100 ML IV SCH ×3 (02:09→18:00)
[2023-05-21] MEDS: FUROSEMIDE INJECTION 100 MG in D5W 5% 100 ML IV SCH ×5 (02:45→20:02)
[2023-05-21] MEDS: VASOPRESSIN 20 UNITS in SODIUM CHL 0.9% 99 ML IV SCH ×2 (02:58→13:57)
[2023-05-21] MEDS: SODIUM CHLOR 0.9% PF (SALINE LOCK) 10ML VIAL/SYR IV SCH ×3 (06:00→22:12)
[2023-05-21] MEDS: NYSTATIN (MOUTH-THROAT) 500,000 UNITS/5 ML SUSP MT SCH ×4 (08:16→22:12)
[2023-05-21] MEDS: LEVOTHYROXINE SODIUM 25 MCG TAB PO SCH (08:16)
[2023-05-21] MEDS: LEVOTHYROXINE SODIUM 100 MCG TAB PO SCH (08:16)
[2023-05-21] MEDS: METOCLOPRAMIDE HCL 5MG/ml INJ 2ml VIAL IV PRN ×2 (08:21→17:35)
[2023-05-21] MEDS: HYDROmorphone HCL 2 MG/ML VL/or syr IV PRN ×2 (08:39→17:35)
[2023-05-21 09:32] LABS: Albumin 1.9 g/dL (3.4-5.0); BUN/Creatinine Ratio 31.5 (10.0-20.0); Bilirubin, Total 1.1 mg/dL (0.2-1.0); Calcium 7.4 mg/dL (8.7-10.4); Total Protein 5.3 g/dL (6.4-8.2)
[2023-05-21] MEDS: POTASSIUM CHL 20 Meq TABLET PO SCH ×2 (09:37→22:13)
[2023-05-21] MEDS: FLUDROCORTISONE ACETATE 0.1 MG TAB PO SCH ×2 (09:37→22:13)
[2023-05-21] MEDS: CHOLESTYRAMINE 4 GM POWDER PO SCH (09:37)
[2023-05-21] MEDS: SODIUM BICARBONATE 650 MG TAB PO SCH ×2 (09:37→22:12)
[2023-05-21] MEDS: ENOXAPARIN SOD 40 MG/0.4 ML SYRINGE SC SCH (09:37)
[2023-05-21] MEDS: ELUXADOLINE 100 MG PO SCH ×2 (09:37→22:00)
[2023-05-21 10:03] LABS: Potassium 2.9 mmol/L (3.5-5.1)
[2023-05-21] MEDS: POTASSIUM CHL 20MEQ/100ML 100 ML IV SCH ×2 (11:30→13:56)
[2023-05-21] MEDS: PHENYLEPHRINE INJ 80 MG in SODIUM CHL 0.9% 242 ML IV SCH (13:00)
[2023-05-21] MEDS: NOREPINEPHRINE BITARTRATE 32 MG in SODIUM CHL 0.9% 218 ML IV SCH (13:00)
[2023-05-21 14:49] LABS: Basophils # (auto) 0 10 ^3/uL (0-0.2); Basophils % (auto) 0.2 % (0.0-2.0); Eosinophils # (auto) 0.2 10 ^3/uL (0-0.8); Eosinophils % (auto) 1.3 % (0.0-7.0); Hematocrit 32.1 % (36.0-46.0); Hemoglobin 10.8 g/dL (12.2-16.2); Lymphocytes # (auto) 2.2 10 ^3/uL (0.4-5.4); Lymphocytes % (auto) 16.3 % (10.0-50.0); Mean Corpuscular Hemoglobin 31.2 pg (28.0-32.0); Mean Corpuscular Hgb Conc. 33.6 g/dL (32.0-36.0); Mean Corpuscular Volume 92.7 fL (80.0-100.0); Monocytes # (auto) 0.6 10 ^3/uL (0-1.3); Monocytes % (auto) 4.2 % (0.0-12.0); Neutrophils # (auto) 10.7 10 ^3/uL (1.6-8.6); Nucleated Red Blood Cells % 0.2 %; Red Blood Cells 3.47 10^6/uL (4.0-5.20); Red Cell Distribution Width 14.6 % (11.8-14.3); White Blood Cell 13.7 10^3/uL (4.4-10.8)
[2023-05-21] MEDS: VANCOMYCIN 500 MG in D5W 5% 100 ML IV SCH (15:15)
[2023-05-21] MEDS ORDERED: ADENOSINE 6 MG/2 ML INJ IV ONE (16:15)
[2023-05-22] VITALS (88 sets, daily range): BP systolic 35–167; BP diastolic 15–142; PULSE 93–122; RESP 9–24; TEMP 97.4–98; O2SAT 23–100
[2023-05-22] MEDS: CHOLESTYRAMINE 4 GM POWDER PO SCH ×2 (00:13→11:00)
[2023-05-22] MEDS: FUROSEMIDE INJECTION 100 MG in D5W 5% 100 ML IV SCH ×5 (01:06→22:04)
[2023-05-22] MEDS: VASOPRESSIN 20 UNITS in SODIUM CHL 0.9% 99 ML IV SCH ×3 (01:12→23:26)
[2023-05-22] MEDS: HYDROmorphone HCL 2 MG/ML VL/or syr IV PRN ×3 (01:47→15:43)
[2023-05-22] MEDS: PIPERACILLIN-TAZOB 3.375GM 100 ML IV SCH ×2 (03:37→09:42)
[2023-05-22] MEDS: NOREPINEPHRINE BITARTRATE 32 MG in SODIUM CHL 0.9% 218 ML IV SCH (03:50)
[2023-05-22] MEDS: NYSTATIN (MOUTH-THROAT) 500,000 UNITS/5 ML SUSP MT SCH ×4 (06:19→22:07)
[2023-05-22] MEDS: POTASSIUM CHL 20 Meq TABLET PO SCH ×4 (06:20→22:08)
[2023-05-22] MEDS: LEVOTHYROXINE SODIUM 25 MCG TAB PO SCH (06:20)
[2023-05-22] MEDS: LEVOTHYROXINE SODIUM 100 MCG TAB PO SCH (06:21)
[2023-05-22] MEDS: SODIUM CHLOR 0.9% PF (SALINE LOCK) 10ML VIAL/SYR IV SCH ×3 (06:27→22:08)
[2023-05-22 08:24] LABS: Hematocrit 30.1 % (36.0-46.0); Hemoglobin 10.2 g/dL (12.2-16.2); Mean Corpuscular Hemoglobin 31.4 pg (28.0-32.0); Mean Corpuscular Hgb Conc. 33.8 g/dL (32.0-36.0); Mean Corpuscular Volume 92.7 fL (80.0-100.0); Red Blood Cells 3.25 10^6/uL (4.0-5.20); Red Cell Distribution Width 14.6 % (11.8-14.3)
[2023-05-22 08:39] LABS: Band Neutrophils % (manual) 0; Basophils % (manual) 0 (0.0-2.0); Blast Cells 0; Metamyelocytes % 0; Myelocytes % 0; Promyelocytes % 0; Reactive Lymphocytes 0
[2023-05-22 08:49] LABS: Chloride 87 mmol/L (98-107); Sodium 132 mmol/L (136-145)
[2023-05-22 08:50] LABS: Anion Gap 8.2 (5-15); Carbon Dioxide 36.8 mmol/L (20-30)
[2023-05-22 08:51] LABS: Calcium 6.7 mg/dL (8.5-10.1)
[2023-05-22 08:55] LABS: Glucose 152 mg/dL (74-106)
[2023-05-22 08:56] LABS: BUN/Creatinine Ratio 42.9 (10.0-20.0); Blood Urea Nitrogen 27 mg/dL (9-23)
[2023-05-22 09:01] LABS: Potassium 2.4 mmol/L (3.5-5.1)
[2023-05-22] MEDS: ELUXADOLINE 100 MG PO SCH ×2 (09:42→22:00)
[2023-05-22] MEDS: ENOXAPARIN SOD 40 MG/0.4 ML SYRINGE SC SCH (09:42)
[2023-05-22] MEDS: SODIUM BICARBONATE 650 MG TAB PO SCH (09:43)
[2023-05-22] MEDS: FLUDROCORTISONE ACETATE 0.1 MG TAB PO SCH ×2 (09:43→22:07)
[2023-05-22] MEDS: POTASSIUM CHL 20MEQ/100ML 100 ML IV SCH ×4 (09:43→13:12)
[2023-05-22] MEDS: METOCLOPRAMIDE HCL 5MG/ml INJ 2ml VIAL IV PRN ×3 (09:44→22:07)
[2023-05-22] MEDS: PHENYLEPHRINE INJ 80 MG in SODIUM CHL 0.9% 242 ML IV SCH (13:00)
[2023-05-22 13:06] LABS: Eosinophils % (manual) 1 (0-7); Lymphocytes % (manual) 13 (10.0-50.0); Monocytes % (manual) 6 (0-12); Platelet Estimate Adequate
[2023-05-22] MEDS ORDERED: cefTRIAXone 1GM/50ML D5W 50 ML IV ONE (14:00)
[2023-05-22] MEDS: SPIRONOLACTONE 25 MG TAB PO SCH (18:02)
[2023-05-23] VITALS (98 sets, daily range): BP systolic 78–141; BP diastolic 29–100; PULSE 91–114; RESP 9–34; TEMP 97.7–98.2; O2SAT 91–100
[2023-05-23] MEDS: HYDROmorphone HCL 2 MG/ML VL/or syr IV PRN ×4 (00:27→22:32)
[2023-05-23] MEDS: CHOLESTYRAMINE 4 GM POWDER PO SCH ×3 (00:33→22:37)
[2023-05-23] MEDS: FUROSEMIDE INJECTION 100 MG in D5W 5% 100 ML IV SCH ×4 (03:35→20:57)
[2023-05-23 04:54] LABS: Anion Gap 7.3 (5-15); Carbon Dioxide 37.7 mmol/L (20-30); Chloride 87 mmol/L (98-107); Sodium 132 mmol/L (136-145)
[2023-05-23 04:56] LABS: Calcium 6.7 mg/dL (8.7-10.4)
[2023-05-23 05:00] LABS: Glucose 160 mg/dL (74-106)
[2023-05-23 05:01] LABS: BUN/Creatinine Ratio 32.3 (10.0-20.0); Blood Urea Nitrogen 20 mg/dL (9-23)
[2023-05-23 05:15] LABS: Potassium 2.7 mmol/L (3.5-5.1)
[2023-05-23] MEDS: SPIRONOLACTONE 25 MG TAB PO SCH ×2 (05:40→18:27)
[2023-05-23] MEDS: POTASSIUM CHL 20 Meq TABLET PO SCH ×3 (05:41→21:50)
[2023-05-23] MEDS: SODIUM CHLOR 0.9% PF (SALINE LOCK) 10ML VIAL/SYR IV SCH ×3 (05:46→21:40)
[2023-05-23] MEDS: LEVOTHYROXINE SODIUM 100 MCG TAB PO SCH (06:27)
[2023-05-23] MEDS: LEVOTHYROXINE SODIUM 25 MCG TAB PO SCH (06:28)
[2023-05-23] MEDS: NYSTATIN (MOUTH-THROAT) 500,000 UNITS/5 ML SUSP MT SCH ×4 (06:52→21:40)
[2023-05-23] MEDS: POTASSIUM CHL 20MEQ/100ML 100 ML IV SCH ×4 (09:33→16:43)
[2023-05-23] MEDS: cefTRIAXone 1GM/50ML D5W 50 ML IV SCH (09:33)
[2023-05-23] MEDS: FLUDROCORTISONE ACETATE 0.1 MG TAB PO SCH ×2 (09:34→21:40)
[2023-05-23] MEDS: ELUXADOLINE 100 MG PO SCH ×2 (09:34→21:41)
[2023-05-23] MEDS: ENOXAPARIN SOD 40 MG/0.4 ML SYRINGE SC SCH (09:35)
[2023-05-23] MEDS: METOCLOPRAMIDE HCL 5MG/ml INJ 2ml VIAL IV PRN ×3 (09:38→22:32)
[2023-05-23] MEDS ORDERED: ALBUMIN 5% 250 ML IV ONE (10:15)
[2023-05-23] MEDS: VASOPRESSIN 20 UNITS in SODIUM CHL 0.9% 99 ML IV SCH ×2 (10:33→21:40)
[2023-05-23] MEDS: NOREPINEPHRINE BITARTRATE 32 MG in SODIUM CHL 0.9% 218 ML IV SCH ×2 (13:00→14:38)
[2023-05-23] MEDS: PHENYLEPHRINE INJ 80 MG in SODIUM CHL 0.9% 242 ML IV SCH (13:00)
[2023-05-24] VITALS (96 sets, daily range): BP systolic 72–114; BP diastolic 41–69; PULSE 90–105; RESP 8–25; TEMP 97.6–98.1; O2SAT 92–100
[2023-05-24] MEDS: FUROSEMIDE INJECTION 100 MG in D5W 5% 100 ML IV SCH ×5 (02:02→20:26)
[2023-05-24 04:29] LABS: Calcium 6.6 mg/dL (8.7-10.4); Chloride 85 mmol/L (98-107); Potassium 3.2 mmol/L (3.5-5.1); Sodium 130 mmol/L (136-145)
[2023-05-24] MEDS: HYDROmorphone HCL 2 MG/ML VL/or syr IV PRN ×4 (04:33→22:47)
[2023-05-24] MEDS: METOCLOPRAMIDE HCL 5MG/ml INJ 2ml VIAL IV PRN ×4 (04:33→22:46)
[2023-05-24 04:35] LABS: BUN/Creatinine Ratio 32.1 (10.0-20.0); Blood Urea Nitrogen 17 mg/dL (9-23); Glucose 146 mg/dL (74-106)
[2023-05-24] MEDS: SPIRONOLACTONE 25 MG TAB PO SCH ×2 (06:09→18:00)
[2023-05-24] MEDS: POTASSIUM CHL 20 Meq TABLET PO SCH ×3 (06:10→21:52)
[2023-05-24] MEDS: NYSTATIN (MOUTH-THROAT) 500,000 UNITS/5 ML SUSP MT SCH ×4 (06:10→21:52)
[2023-05-24] MEDS: SODIUM CHLOR 0.9% PF (SALINE LOCK) 10ML VIAL/SYR IV SCH ×3 (06:10→21:52)
[2023-05-24] MEDS: LEVOTHYROXINE SODIUM 100 MCG TAB PO SCH (06:30)
[2023-05-24] MEDS: LEVOTHYROXINE SODIUM 25 MCG TAB PO SCH (06:30)
[2023-05-24] MEDS: VASOPRESSIN 20 UNITS in SODIUM CHL 0.9% 99 ML IV SCH ×2 (08:33→19:54)
[2023-05-24] MEDS: ELUXADOLINE 100 MG PO SCH ×2 (09:26→22:00)
[2023-05-24] MEDS: cefTRIAXone 1GM/50ML D5W 50 ML IV SCH (09:33)
[2023-05-24] MEDS: FLUDROCORTISONE ACETATE 0.1 MG TAB PO SCH ×2 (10:14→21:52)
[2023-05-24] MEDS: ENOXAPARIN SOD 40 MG/0.4 ML SYRINGE SC SCH (10:15)
[2023-05-24] MEDS: CHOLESTYRAMINE 4 GM POWDER PO SCH ×2 (11:00→23:33)
[2023-05-24] MEDS: PHENYLEPHRINE INJ 80 MG in SODIUM CHL 0.9% 242 ML IV SCH (13:00)
[2023-05-25] VITALS (95 sets, daily range): BP systolic 70–161; BP diastolic 22–132; PULSE 83–111; RESP 8–28; TEMP 97.9–98.2; O2SAT 86–100
[2023-05-25] MEDS: FUROSEMIDE INJECTION 100 MG in D5W 5% 100 ML IV SCH ×5 (02:26→20:52)
[2023-05-25] MEDS: METOCLOPRAMIDE HCL 5MG/ml INJ 2ml VIAL IV PRN ×4 (04:47→22:43)
[2023-05-25] MEDS: HYDROmorphone HCL 2 MG/ML VL/or syr IV PRN ×4 (04:48→22:46)
[2023-05-25 05:00] LABS: Anion Gap 5.9 (5-15); Carbon Dioxide 38.1 mmol/L (20-30); Chloride 84 mmol/L (98-107); Sodium 128 mmol/L (136-145)
[2023-05-25 05:01] LABS: Calcium 6.6 mg/dL (8.7-10.4)
[2023-05-25 05:06] LABS: BUN/Creatinine Ratio 23.2 (10.0-20.0); Blood Urea Nitrogen 13 mg/dL (9-23); Glucose 159 mg/dL (74-106)
[2023-05-25 06:23] LABS: Potassium 2.6 mmol/L (3.5-5.1)
[2023-05-25] MEDS: SPIRONOLACTONE 25 MG TAB PO SCH ×2 (06:44→18:00)
[2023-05-25] MEDS: NYSTATIN (MOUTH-THROAT) 500,000 UNITS/5 ML SUSP MT SCH ×4 (06:44→22:10)
[2023-05-25] MEDS: POTASSIUM CHL 20 Meq TABLET PO SCH ×4 (06:44→22:10)
[2023-05-25] MEDS: LEVOTHYROXINE SODIUM 25 MCG TAB PO SCH (06:49)
[2023-05-25] MEDS: LEVOTHYROXINE SODIUM 100 MCG TAB PO SCH (06:49)
[2023-05-25] MEDS: SODIUM CHLOR 0.9% PF (SALINE LOCK) 10ML VIAL/SYR IV SCH ×3 (06:53→22:10)
[2023-05-25] MEDS: VASOPRESSIN 20 UNITS in SODIUM CHL 0.9% 99 ML IV SCH ×2 (07:01→18:08)
[2023-05-25] MEDS: NOREPINEPHRINE BITARTRATE 32 MG in SODIUM CHL 0.9% 218 ML IV SCH (07:35)
[2023-05-25] MEDS: ELUXADOLINE 100 MG PO SCH ×2 (09:43→22:00)
[2023-05-25] MEDS: cefTRIAXone 1GM/50ML D5W 50 ML IV SCH (09:43)
[2023-05-25] MEDS: ENOXAPARIN SOD 40 MG/0.4 ML SYRINGE SC SCH (09:43)
[2023-05-25] MEDS: FLUDROCORTISONE ACETATE 0.1 MG TAB PO SCH ×2 (09:43→22:10)
[2023-05-25] MEDS: CHOLESTYRAMINE 4 GM POWDER PO SCH ×2 (11:00→22:50)
[2023-05-25] MEDS: POTASSIUM CHL 20MEQ/100ML 100 ML IV SCH ×4 (11:35→19:01)
[2023-05-25] MEDS: PHENYLEPHRINE INJ 80 MG in SODIUM CHL 0.9% 242 ML IV SCH (13:00)
[2023-05-26] VITALS (94 sets, daily range): BP systolic 56–176; BP diastolic 26–132; PULSE 72–176; RESP 10–23; TEMP 98–98.3; O2SAT 85–100
[2023-05-26] MEDS: FUROSEMIDE INJECTION 100 MG in D5W 5% 100 ML IV SCH ×5 (01:50→22:47)
[2023-05-26 04:38] LABS: Anion Gap 4.5 (5-15); Carbon Dioxide 37.5 mmol/L (20-30); Chloride 84 mmol/L (98-107); Potassium 4.6 mmol/L (3.5-5.1); Sodium 126 mmol/L (136-145)
[2023-05-26 04:39] LABS: Calcium 7.1 mg/dL (8.7-10.4)
[2023-05-26] MEDS: METOCLOPRAMIDE HCL 5MG/ml INJ 2ml VIAL IV PRN ×5 (04:41→21:35)
[2023-05-26 04:44] LABS: BUN/Creatinine Ratio 22.2 (10.0-20.0); Blood Urea Nitrogen 14 mg/dL (9-23); Glucose 160 mg/dL (74-106)
[2023-05-26] MEDS: HYDROmorphone HCL 2 MG/ML VL/or syr IV PRN ×4 (04:47→21:36)
[2023-05-26] MEDS: VASOPRESSIN 20 UNITS in SODIUM CHL 0.9% 99 ML IV SCH ×2 (05:15→16:22)
[2023-05-26] MEDS: POTASSIUM CHL 20 Meq TABLET PO SCH ×4 (06:38→22:06)
[2023-05-26] MEDS: NYSTATIN (MOUTH-THROAT) 500,000 UNITS/5 ML SUSP MT SCH ×4 (06:39→22:06)
[2023-05-26] MEDS: SODIUM CHLOR 0.9% PF (SALINE LOCK) 10ML VIAL/SYR IV SCH ×3 (06:39→22:06)
[2023-05-26] MEDS: SPIRONOLACTONE 25 MG TAB PO SCH ×2 (06:41→17:54)
[2023-05-26] MEDS: LEVOTHYROXINE SODIUM 25 MCG TAB PO SCH (06:43)
[2023-05-26] MEDS: LEVOTHYROXINE SODIUM 100 MCG TAB PO SCH (06:44)
[2023-05-26] MEDS: cefTRIAXone 1GM/50ML D5W 50 ML IV SCH (09:11)
[2023-05-26] MEDS: ELUXADOLINE 100 MG PO SCH ×2 (10:00→22:00)
[2023-05-26] MEDS: CHOLESTYRAMINE 4 GM POWDER PO SCH ×2 (10:11→22:47)
[2023-05-26] MEDS: FLUDROCORTISONE ACETATE 0.1 MG TAB PO SCH ×2 (10:11→22:06)
[2023-05-26] MEDS: ENOXAPARIN SOD 40 MG/0.4 ML SYRINGE SC SCH (10:11)
[2023-05-26] MEDS: PHENYLEPHRINE INJ 80 MG in SODIUM CHL 0.9% 242 ML IV SCH (13:00)
[2023-05-26] MEDS: NOREPINEPHRINE BITARTRATE 32 MG in SODIUM CHL 0.9% 218 ML IV SCH (13:00)
[2023-05-27] VITALS (95 sets, daily range): BP systolic 76–116; BP diastolic 37–71; PULSE 94–116; RESP 12–28; TEMP 98–98.5; O2SAT 95–100
[2023-05-27] MEDS: METOCLOPRAMIDE HCL 5MG/ml INJ 2ml VIAL IV PRN ×4 (03:23→21:16)
[2023-05-27] MEDS: HYDROmorphone HCL 2 MG/ML VL/or syr IV PRN ×4 (03:27→21:16)
[2023-05-27] MEDS: VASOPRESSIN 20 UNITS in SODIUM CHL 0.9% 99 ML IV SCH ×2 (03:29→13:19)
[2023-05-27 04:10] LABS: Anion Gap 6.2 (5-15); Carbon Dioxide 35.8 mmol/L (20-30); Chloride 84 mmol/L (98-107); Potassium 4.5 mmol/L (3.5-5.1); Sodium 126 mmol/L (136-145)
[2023-05-27 04:11] LABS: Calcium 7.2 mg/dL (8.7-10.4)
[2023-05-27 04:16] LABS: BUN/Creatinine Ratio 21.7 (10.0-20.0); Blood Urea Nitrogen 15 mg/dL (9-23); Glucose 133 mg/dL (74-106)
[2023-05-27] MEDS: FUROSEMIDE INJECTION 100 MG in D5W 5% 100 ML IV SCH ×3 (04:23→14:39)
[2023-05-27] MEDS: SPIRONOLACTONE 25 MG TAB PO SCH ×2 (06:29→17:57)
[2023-05-27] MEDS: NYSTATIN (MOUTH-THROAT) 500,000 UNITS/5 ML SUSP MT SCH ×4 (06:29→21:31)
[2023-05-27] MEDS: SODIUM CHLOR 0.9% PF (SALINE LOCK) 10ML VIAL/SYR IV SCH ×3 (06:29→21:31)
[2023-05-27] MEDS: POTASSIUM CHL 20 Meq TABLET PO SCH ×3 (06:30→21:32)
[2023-05-27] MEDS: LEVOTHYROXINE SODIUM 25 MCG TAB PO SCH (06:49)
[2023-05-27] MEDS: LEVOTHYROXINE SODIUM 100 MCG TAB PO SCH (06:49)
[2023-05-27] MEDS: cefTRIAXone 1GM/50ML D5W 50 ML IV SCH (08:41)
[2023-05-27] MEDS: ELUXADOLINE 100 MG PO SCH ×2 (10:00→21:32)
[2023-05-27] MEDS: FLUDROCORTISONE ACETATE 0.1 MG TAB PO SCH ×2 (10:24→21:32)
[2023-05-27] MEDS: ENOXAPARIN SOD 40 MG/0.4 ML SYRINGE SC SCH (10:25)
[2023-05-27] MEDS: CHOLESTYRAMINE 4 GM POWDER PO SCH ×2 (10:29→22:40)
[2023-05-27] MEDS: PHENYLEPHRINE INJ 80 MG in SODIUM CHL 0.9% 242 ML IV SCH (12:06)
[2023-05-27] MEDS: NOREPINEPHRINE BITARTRATE 32 MG in SODIUM CHL 0.9% 218 ML IV SCH (13:00)
[2023-05-27] MEDS: FUROSEMIDE 40 MG/4 ML VIAL IV SCH (21:31)
[2023-05-28] VITALS (100 sets, daily range): BP systolic 47–113; BP diastolic 21–96; PULSE 95–115; RESP 12–22; TEMP 98–98.6; O2SAT 84–100
[2023-05-28] MEDS: VASOPRESSIN 20 UNITS in SODIUM CHL 0.9% 99 ML IV SCH ×3 (01:30→23:57)
[2023-05-28] MEDS: HYDROmorphone HCL 2 MG/ML VL/or syr IV PRN ×4 (03:02→21:06)
[2023-05-28] MEDS: METOCLOPRAMIDE HCL 5MG/ml INJ 2ml VIAL IV PRN ×4 (03:02→21:05)
[2023-05-28] MEDS: NOREPINEPHRINE BITARTRATE 32 MG in SODIUM CHL 0.9% 218 ML IV SCH (03:39)
[2023-05-28 04:24] LABS: Anion Gap 7.4 (5-15); Carbon Dioxide 36.6 mmol/L (20-30); Chloride 84 mmol/L (98-107); Potassium 3.4 mmol/L (3.5-5.1); Sodium 128 mmol/L (136-145)
[2023-05-28 04:25] LABS: Basophils # (auto) 0.1 10 ^3/uL (0-0.2); Basophils % (auto) 0.7 % (0.0-2.0); Calcium 7.6 mg/dL (8.7-10.4); Eosinophils # (auto) 0 10 ^3/uL (0-0.8); Eosinophils % (auto) 0.2 % (0.0-7.0); Hematocrit 31.4 % (36.0-46.0); Hemoglobin 10.4 g/dL (12.2-16.2); Lymphocytes # (auto) 3.4 10 ^3/uL (0.4-5.4); Lymphocytes % (auto) 23.4 % (10.0-50.0); Mean Corpuscular Hemoglobin 30.8 pg (28.0-32.0); Mean Corpuscular Hgb Conc. 33.2 g/dL (32.0-36.0); Mean Corpuscular Volume 92.9 fL (80.0-100.0); Monocytes # (auto) 0.8 10 ^3/uL (0-1.3); Monocytes % (auto) 5.2 % (0.0-12.0); Neutrophils # (auto) 10.3 10 ^3/uL (1.6-8.6); Neutrophils % (auto) 70.5 % (37.0-80.0); Nucleated Red Blood Cells % 0.5 %; Red Blood Cells 3.38 10^6/uL (4.0-5.20); Red Cell Distribution Width 14.3 % (11.8-14.3); White Blood Cell 14.7 10^3/uL (4.4-10.8)
[2023-05-28 04:30] LABS: BUN/Creatinine Ratio 22.2 (10.0-20.0); Blood Urea Nitrogen 14 mg/dL (9-23); Glucose 123 mg/dL (74-106)
[2023-05-28] MEDS: NYSTATIN (MOUTH-THROAT) 500,000 UNITS/5 ML SUSP MT SCH ×2 (06:00→12:00)
[2023-05-28] MEDS: SODIUM CHLOR 0.9% PF (SALINE LOCK) 10ML VIAL/SYR IV SCH ×3 (06:01→22:41)
[2023-05-28] MEDS: FUROSEMIDE 40 MG/4 ML VIAL IV SCH ×3 (06:01→22:41)
[2023-05-28] MEDS: SPIRONOLACTONE 25 MG TAB PO SCH ×2 (06:02→18:28)
[2023-05-28] MEDS: LEVOTHYROXINE SODIUM 25 MCG TAB PO SCH (06:33)
[2023-05-28] MEDS: LEVOTHYROXINE SODIUM 100 MCG TAB PO SCH (06:33)
[2023-05-28] MEDS: cefTRIAXone 1GM/50ML D5W 50 ML IV SCH (09:01)
[2023-05-28] MEDS: CHOLESTYRAMINE 4 GM POWDER PO SCH ×2 (10:39→23:30)
[2023-05-28] MEDS: FLUDROCORTISONE ACETATE 0.1 MG TAB PO SCH ×2 (10:41→22:39)
[2023-05-28] MEDS: ENOXAPARIN SOD 40 MG/0.4 ML SYRINGE SC SCH (10:41)
[2023-05-28] MEDS: POTASSIUM CHL 20 Meq TABLET PO SCH ×2 (10:41→22:38)
[2023-05-28] MEDS: ELUXADOLINE 100 MG PO SCH ×2 (10:42→22:41)
[2023-05-28] MEDS: PHENYLEPHRINE INJ 80 MG in SODIUM CHL 0.9% 242 ML IV SCH (12:20)
[2023-05-28] MEDS ORDERED: POTASSIUM EFFERVESENT TAB 25 MEQ GT ONE (17:00)
[2023-05-29] VITALS (93 sets, daily range): BP systolic 70–123; BP diastolic 38–85; PULSE 90–110; RESP 12–27; TEMP 98.2–98.5; O2SAT 90–100
[2023-05-29] MEDS: HYDROmorphone HCL 2 MG/ML VL/or syr IV PRN ×4 (03:11→22:30)
[2023-05-29] MEDS: METOCLOPRAMIDE HCL 5MG/ml INJ 2ml VIAL IV PRN ×4 (03:11→22:30)
[2023-05-29 04:25] LABS: Anion Gap 7.3 (5-15); Calcium 7.7 mg/dL (8.7-10.4); Carbon Dioxide 34.7 mmol/L (20-30); Chloride 86 mmol/L (98-107); Potassium 3.6 mmol/L (3.5-5.1); Sodium 128 mmol/L (136-145)
[2023-05-29 04:31] LABS: BUN/Creatinine Ratio 26.9 (10.0-20.0); Blood Urea Nitrogen 14 mg/dL (9-23); Glucose 127 mg/dL (74-106)
[2023-05-29] MEDS: LEVOTHYROXINE SODIUM 25 MCG TAB PO SCH (06:43)
[2023-05-29] MEDS: FUROSEMIDE 40 MG/4 ML VIAL IV SCH ×3 (06:43→22:29)
[2023-05-29] MEDS: SPIRONOLACTONE 25 MG TAB PO SCH ×2 (06:43→16:38)
[2023-05-29] MEDS: LEVOTHYROXINE SODIUM 100 MCG TAB PO SCH (06:43)
[2023-05-29] MEDS: SODIUM CHLOR 0.9% PF (SALINE LOCK) 10ML VIAL/SYR IV SCH ×3 (06:44→22:29)
[2023-05-29] MEDS: cefTRIAXone 1GM/50ML D5W 50 ML IV SCH (10:57)
[2023-05-29] MEDS: CHOLESTYRAMINE 4 GM POWDER PO SCH ×2 (10:57→23:33)
[2023-05-29] MEDS: ELUXADOLINE 100 MG PO SCH ×2 (10:58→22:29)
[2023-05-29] MEDS: FLUDROCORTISONE ACETATE 0.1 MG TAB PO SCH ×2 (10:59→22:29)
[2023-05-29] MEDS: POTASSIUM CHL 20 Meq TABLET PO SCH ×2 (10:59→22:30)
[2023-05-29] MEDS: ENOXAPARIN SOD 40 MG/0.4 ML SYRINGE SC SCH (11:01)
[2023-05-29] MEDS: VASOPRESSIN 20 UNITS in SODIUM CHL 0.9% 99 ML IV SCH ×2 (11:04→22:11)
[2023-05-29] MEDS: PHENYLEPHRINE INJ 80 MG in SODIUM CHL 0.9% 242 ML IV SCH (13:00)
[2023-05-29] MEDS: NOREPINEPHRINE BITARTRATE 32 MG in SODIUM CHL 0.9% 218 ML IV SCH (13:00)
[2023-05-30] VITALS (96 sets, daily range): BP systolic 73–115; BP diastolic 32–75; PULSE 91–124; RESP 12–30; TEMP 97.3–97.9; O2SAT 89–100
[2023-05-30] MEDS: METOCLOPRAMIDE HCL 5MG/ml INJ 2ml VIAL IV PRN ×4 (04:43→22:20)
[2023-05-30] MEDS: HYDROmorphone HCL 2 MG/ML VL/or syr IV PRN ×2 (04:44→10:30)
[2023-05-30 04:48] LABS: Chloride 86 mmol/L (98-107); Potassium 4.3 mmol/L (3.5-5.1); Sodium 127 mmol/L (136-145)
[2023-05-30 04:54] LABS: Glucose 129 mg/dL (74-106)
[2023-05-30 04:55] LABS: BUN/Creatinine Ratio 29.7 (10.0-20.0); Blood Urea Nitrogen 11 mg/dL (9-23)
[2023-05-30] MEDS: FUROSEMIDE 40 MG/4 ML VIAL IV SCH ×3 (06:53→22:04)
[2023-05-30] MEDS: SPIRONOLACTONE 25 MG TAB PO SCH ×2 (06:53→16:35)
[2023-05-30] MEDS: LEVOTHYROXINE SODIUM 25 MCG TAB PO SCH (06:53)
[2023-05-30] MEDS: LEVOTHYROXINE SODIUM 100 MCG TAB PO SCH (06:53)
[2023-05-30] MEDS: SODIUM CHLOR 0.9% PF (SALINE LOCK) 10ML VIAL/SYR IV SCH ×3 (06:53→22:06)
[2023-05-30] MEDS: NOREPINEPHRINE BITARTRATE 32 MG in SODIUM CHL 0.9% 218 ML IV SCH (06:54)
[2023-05-30] MEDS: VASOPRESSIN 20 UNITS in SODIUM CHL 0.9% 99 ML IV SCH ×2 (09:18→19:58)
[2023-05-30] MEDS: POTASSIUM CHL 20 Meq TABLET PO SCH ×2 (10:31→22:05)
[2023-05-30] MEDS: FLUDROCORTISONE ACETATE 0.1 MG TAB PO SCH ×2 (10:31→22:05)
[2023-05-30] MEDS: ENOXAPARIN SOD 40 MG/0.4 ML SYRINGE SC SCH (10:31)
[2023-05-30] MEDS: ELUXADOLINE 100 MG PO SCH ×2 (10:32→22:06)
[2023-05-30] MEDS: CHOLESTYRAMINE 4 GM POWDER PO SCH ×2 (10:32→22:51)
[2023-05-30] MEDS: cefTRIAXone 1GM/50ML D5W 50 ML IV SCH (10:32)
[2023-05-30] MEDS: PHENYLEPHRINE INJ 80 MG in SODIUM CHL 0.9% 242 ML IV SCH (13:00)
[2023-05-30] MEDS: HYDROcodone-ACET 10/325MG TAB PO PRN ×2 (16:35→20:35)
[2023-05-31] VITALS (100 sets, daily range): BP systolic 72–133; BP diastolic 15–99; PULSE 87–108; RESP 14–18; TEMP 97.6–98.1; O2SAT 74–100
[2023-05-31] MEDS: HYDROcodone-ACET 10/325MG TAB PO PRN ×4 (02:29→19:55)
[2023-05-31] MEDS: SPIRONOLACTONE 25 MG TAB PO SCH ×2 (06:23→17:03)
[2023-05-31] MEDS: FUROSEMIDE 40 MG/4 ML VIAL IV SCH ×3 (06:23→21:54)
[2023-05-31] MEDS: LEVOTHYROXINE SODIUM 100 MCG TAB PO SCH (06:24)
[2023-05-31] MEDS: SODIUM CHLOR 0.9% PF (SALINE LOCK) 10ML VIAL/SYR IV SCH ×3 (06:24→21:54)
[2023-05-31] MEDS: LEVOTHYROXINE SODIUM 25 MCG TAB PO SCH (06:24)
[2023-05-31] MEDS: METOCLOPRAMIDE HCL 5MG/ml INJ 2ml VIAL IV PRN ×4 (06:45→22:02)
[2023-05-31] MEDS: VASOPRESSIN 20 UNITS in SODIUM CHL 0.9% 99 ML IV SCH ×2 (07:32→11:27)
[2023-05-31] MEDS: cefTRIAXone 1GM/50ML D5W 50 ML IV SCH (09:00)
[2023-05-31] MEDS: ENOXAPARIN SOD 40 MG/0.4 ML SYRINGE SC SCH (09:06)
[2023-05-31] MEDS: POTASSIUM CHL 20 Meq TABLET PO SCH ×2 (09:07→21:54)
[2023-05-31] MEDS: FLUDROCORTISONE ACETATE 0.1 MG TAB PO SCH ×2 (09:07→21:54)
[2023-05-31] MEDS: ELUXADOLINE 100 MG PO SCH ×2 (09:08→21:56)
[2023-05-31] MEDS: PHENYLEPHRINE INJ 80 MG in SODIUM CHL 0.9% 242 ML IV SCH (09:43)
[2023-05-31] MEDS: NOREPINEPHRINE BITARTRATE 32 MG in SODIUM CHL 0.9% 218 ML IV SCH (09:44)
[2023-05-31] MEDS: CHOLESTYRAMINE 4 GM POWDER PO SCH ×2 (11:27→23:00)
[2023-06-01] VITALS (58 sets, daily range): BP systolic 65–98; BP diastolic 32–57; PULSE 89–108; RESP 10–33; TEMP 98.3–98.4; O2SAT 99–100
[2023-06-01] MEDS: HYDROcodone-ACET 10/325MG TAB PO PRN ×6 (00:06→22:30)
[2023-06-01] MEDS: VASOPRESSIN 20 UNITS in SODIUM CHL 0.9% 99 ML IV SCH ×2 (05:28→09:36)
[2023-06-01] MEDS: SODIUM CHLOR 0.9% PF (SALINE LOCK) 10ML VIAL/SYR IV SCH ×3 (06:15→22:28)
[2023-06-01] MEDS: SPIRONOLACTONE 25 MG TAB PO SCH ×2 (06:15→17:42)
[2023-06-01] MEDS: FUROSEMIDE 40 MG/4 ML VIAL IV SCH ×3 (06:15→22:28)
[2023-06-01] MEDS: LEVOTHYROXINE SODIUM 25 MCG TAB PO SCH (06:16)
[2023-06-01] MEDS: METOCLOPRAMIDE HCL 5MG/ml INJ 2ml VIAL IV PRN ×5 (06:16→23:59)
[2023-06-01] MEDS: LEVOTHYROXINE SODIUM 100 MCG TAB PO SCH (06:16)
[2023-06-01] MEDS: cefTRIAXone 1GM/50ML D5W 50 ML IV SCH (08:15)
[2023-06-01] MEDS: POTASSIUM CHL 20 Meq TABLET PO SCH ×2 (09:26→22:30)
[2023-06-01] MEDS: ENOXAPARIN SOD 40 MG/0.4 ML SYRINGE SC SCH (09:26)
[2023-06-01] MEDS: FLUDROCORTISONE ACETATE 0.1 MG TAB PO SCH ×2 (09:26→22:30)
[2023-06-01] MEDS: ELUXADOLINE 100 MG PO SCH ×2 (09:27→22:29)
[2023-06-01] MEDS: PHENYLEPHRINE INJ 80 MG in SODIUM CHL 0.9% 242 ML IV SCH (09:35)
[2023-06-01] MEDS: NOREPINEPHRINE BITARTRATE 32 MG in SODIUM CHL 0.9% 218 ML IV SCH (09:35)
[2023-06-01] MEDS: CHOLESTYRAMINE 4 GM POWDER PO SCH ×2 (11:00→23:58)
[2023-06-02] VITALS (32 sets, daily range): BP systolic 67–104; BP diastolic 30–54; PULSE 96–111; RESP 13–21; TEMP 96.9–98.1; O2SAT 97–100
[2023-06-02] MEDS: HYDROcodone-ACET 10/325MG TAB PO PRN ×5 (02:37→20:06)
[2023-06-02] MEDS: VASOPRESSIN 20 UNITS in SODIUM CHL 0.9% 99 ML IV SCH ×2 (04:00→15:07)
[2023-06-02] MEDS: SPIRONOLACTONE 25 MG TAB PO SCH ×2 (06:06→17:35)
[2023-06-02] MEDS: FUROSEMIDE 40 MG/4 ML VIAL IV SCH ×3 (06:06→22:00)
[2023-06-02] MEDS: SODIUM CHLOR 0.9% PF (SALINE LOCK) 10ML VIAL/SYR IV SCH ×3 (06:07→22:08)
[2023-06-02] MEDS: LEVOTHYROXINE SODIUM 25 MCG TAB PO SCH (06:08)
[2023-06-02] MEDS: LEVOTHYROXINE SODIUM 100 MCG TAB PO SCH (06:08)
[2023-06-02] MEDS: METOCLOPRAMIDE HCL 5MG/ml INJ 2ml VIAL IV PRN ×3 (06:12→20:05)
[2023-06-02] MEDS: POTASSIUM CHL 20 Meq TABLET PO SCH ×2 (10:00→22:09)
[2023-06-02] MEDS: FLUDROCORTISONE ACETATE 0.1 MG TAB PO SCH ×2 (10:12→22:09)
[2023-06-02] MEDS: cefTRIAXone 1GM/50ML D5W 50 ML IV SCH (10:12)
[2023-06-02] MEDS: ELUXADOLINE 100 MG PO SCH ×2 (10:13→22:00)
[2023-06-02] MEDS: CHOLESTYRAMINE 4 GM POWDER PO SCH ×2 (12:41→23:55)
[2023-06-02] MEDS: NOREPINEPHRINE BITARTRATE 32 MG in SODIUM CHL 0.9% 218 ML IV SCH (12:54)
[2023-06-02] MEDS: PHENYLEPHRINE INJ 80 MG in SODIUM CHL 0.9% 242 ML IV SCH (12:54)
[2023-06-02] MEDS ORDERED: PROMETHAZINE HCL 25 MG/ML 1ML IV ONE (17:00)
[2023-06-03] VITALS (26 sets, daily range): BP systolic 71–103; BP diastolic 38–57; PULSE 99–113; RESP 13–20; TEMP 97.6–98.5; O2SAT 97–100
[2023-06-03] MEDS: HYDROcodone-ACET 10/325MG TAB PO PRN ×7 (00:08→23:57)
[2023-06-03] MEDS: VASOPRESSIN 20 UNITS in SODIUM CHL 0.9% 99 ML IV SCH ×2 (02:14→09:29)
[2023-06-03] MEDS: METOCLOPRAMIDE HCL 5MG/ml INJ 2ml VIAL IV PRN ×5 (04:08→23:57)
[2023-06-03 05:05] LABS: Hematocrit 25.4 % (36.0-46.0); Hemoglobin 8.6 g/dL (12.2-16.2); Mean Corpuscular Hemoglobin 31.4 pg (28.0-32.0); Mean Corpuscular Hgb Conc. 34.1 g/dL (32.0-36.0); Mean Corpuscular Volume 92.1 fL (80.0-100.0); Red Blood Cells 2.76 10^6/uL (4.0-5.20); Red Cell Distribution Width 15.6 % (11.8-14.3)
[2023-06-03 05:23] LABS: Band Neutrophils % (manual) 0; Basophils % (manual) 0 (0.0-2.0); Blast Cells 0; Eosinophils % (manual) 0 (0-7); Metamyelocytes % 0; Myelocytes % 0; Promyelocytes % 0; Reactive Lymphocytes 0
[2023-06-03 05:24] LABS: Albumin 2.6 g/dL (3.2-4.8); Alkaline Phosphatase 152 U/L (46-116); Anion Gap 6.8 (5-15); Aspartate Aminotransferase 30 U/L (13-40); BUN/Creatinine Ratio 31.1 (10.0-20.0); Blood Urea Nitrogen 19 mg/dL (9-23); Carbon Dioxide 31.2 mmol/L (20-30); Chloride 91 mmol/L (98-107); Glucose 92 mg/dL (74-106); Magnesium 1.4 mg/dL (1.6-2.6); Potassium 3.7 mmol/L (3.5-5.1); Sodium 129 mmol/L (136-145)
[2023-06-03 05:25] LABS: Bilirubin, Total 0.6 mg/dL (0.2-1.0); Total Protein 5.3 g/dL (5.7-8.2)
[2023-06-03 05:26] LABS: Alanine Aminotransferase 9 U/L (7-40)
[2023-06-03] MEDS: FUROSEMIDE 40 MG/4 ML VIAL IV SCH ×3 (06:00→22:24)
[2023-06-03] MEDS: SPIRONOLACTONE 25 MG TAB PO SCH ×2 (06:03→15:56)
[2023-06-03] MEDS: LEVOTHYROXINE SODIUM 100 MCG TAB PO SCH (06:04)
[2023-06-03] MEDS: SODIUM CHLOR 0.9% PF (SALINE LOCK) 10ML VIAL/SYR IV SCH ×3 (06:04→22:23)
[2023-06-03] MEDS: LEVOTHYROXINE SODIUM 25 MCG TAB PO SCH (06:04)
[2023-06-03] MEDS: PHENYLEPHRINE INJ 80 MG in SODIUM CHL 0.9% 242 ML IV SCH (07:01)
[2023-06-03] MEDS: NOREPINEPHRINE BITARTRATE 32 MG in SODIUM CHL 0.9% 218 ML IV SCH (07:01)
[2023-06-03] MEDS: POTASSIUM CHL 20 Meq TABLET PO SCH ×2 (08:09→22:23)
[2023-06-03] MEDS: FLUDROCORTISONE ACETATE 0.1 MG TAB PO SCH ×2 (08:10→22:22)
[2023-06-03] MEDS: cefTRIAXone 1GM/50ML D5W 50 ML IV SCH (08:10)
[2023-06-03 09:20] LABS: Lymphocytes % (manual) 20 (10.0-50.0); Monocytes % (manual) 8 (0-12)
[2023-06-03 09:21] LABS: Platelet Estimate Adequate
[2023-06-03] MEDS: ELUXADOLINE 100 MG PO SCH ×2 (09:29→22:23)
[2023-06-03] MEDS: CHOLESTYRAMINE 4 GM POWDER PO SCH ×2 (11:40→22:24)
[2023-06-03] MEDS ORDERED: SUCRALFATE 1 GM/10 ML ORAL SUSP PO SCH (14:00)
[2023-06-04] VITALS (28 sets, daily range): BP systolic 72–99; BP diastolic 35–57; PULSE 97–106; RESP 11–23; TEMP 97.7–98.2; O2SAT 97–100
[2023-06-04] MEDS: VASOPRESSIN 20 UNITS in SODIUM CHL 0.9% 99 ML IV SCH ×3 (00:28→22:42)
[2023-06-04] MEDS: METOCLOPRAMIDE HCL 5MG/ml INJ 2ml VIAL IV PRN ×5 (04:01→20:04)
[2023-06-04] MEDS: HYDROcodone-ACET 10/325MG TAB PO PRN ×5 (04:02→20:04)
[2023-06-04] MEDS: SUCRALFATE 1 GM/10 ML ORAL SUSP PO SCH ×3 (04:02→16:02)
[2023-06-04 05:16] LABS: Chloride 92 mmol/L (98-107); Hemoglobin 8.5 g/dL (12.2-16.2); Potassium 3.6 mmol/L (3.5-5.1); Sodium 129 mmol/L (136-145)
[2023-06-04 05:18] LABS: Mean Corpuscular Hemoglobin 31.3 pg (28.0-32.0); Mean Corpuscular Hgb Conc. 33.9 g/dL (32.0-36.0); Mean Corpuscular Volume 92.4 fL (80.0-100.0); Red Cell Distribution Width 15.8 % (11.8-14.3); White Blood Cell 10.8 10^3/uL (4.4-10.8)
[2023-06-04 05:22] LABS: BUN/Creatinine Ratio 28.8 (10.0-20.0); Blood Urea Nitrogen 19 mg/dL (9-23); Glucose 107 mg/dL (74-106)
[2023-06-04] MEDS: FUROSEMIDE 40 MG/4 ML VIAL IV SCH ×3 (06:05→22:36)
[2023-06-04] MEDS: LEVOTHYROXINE SODIUM 100 MCG TAB PO SCH (06:06)
[2023-06-04] MEDS: LEVOTHYROXINE SODIUM 25 MCG TAB PO SCH (06:07)
[2023-06-04] MEDS: SODIUM CHLOR 0.9% PF (SALINE LOCK) 10ML VIAL/SYR IV SCH ×3 (06:09→22:36)
[2023-06-04] MEDS: SPIRONOLACTONE 25 MG TAB PO SCH ×2 (06:09→16:02)
[2023-06-04 06:24] LABS: Band Neutrophils % (manual) 0; Basophils % (manual) 0 (0.0-2.0); Blast Cells 0; Eosinophils % (manual) 0 (0-7); Metamyelocytes % 0; Myelocytes % 0; Promyelocytes % 0; Reactive Lymphocytes 0
[2023-06-04 07:58] LABS: Lymphocytes % (manual) 18 (10.0-50.0); Monocytes % (manual) 11 (0-12); Platelet Estimate Adequate
[2023-06-04 07:59] LABS: Stomatocytes Moderate; Target Cell FEW
[2023-06-04 08:00] LABS: Hypochromia Moderate; Macrocytosis Slight
[2023-06-04] MEDS: FLUDROCORTISONE ACETATE 0.1 MG TAB PO SCH ×2 (08:02→22:36)
[2023-06-04] MEDS: POTASSIUM CHL 20 Meq TABLET PO SCH ×2 (08:02→22:37)
[2023-06-04] MEDS: ELUXADOLINE 100 MG PO SCH ×2 (08:03→22:37)
[2023-06-04] MEDS: NOREPINEPHRINE BITARTRATE 32 MG in SODIUM CHL 0.9% 218 ML IV SCH (10:25)
[2023-06-04] MEDS: PHENYLEPHRINE INJ 80 MG in SODIUM CHL 0.9% 242 ML IV SCH (10:25)
[2023-06-04] MEDS: CHOLESTYRAMINE 4 GM POWDER PO SCH ×2 (11:00→23:41)
[2023-06-05] VITALS (29 sets, daily range): BP systolic 71–94; BP diastolic 41–56; PULSE 94–106; RESP 14–22; TEMP 97.5–98.8; O2SAT 86–100
[2023-06-05] MEDS: HYDROcodone-ACET 10/325MG TAB PO PRN ×6 (00:06→20:05)
[2023-06-05] MEDS: METOCLOPRAMIDE HCL 5MG/ml INJ 2ml VIAL IV PRN ×6 (00:11→20:06)
[2023-06-05] MEDS: FUROSEMIDE 40 MG/4 ML VIAL IV SCH (06:20)
[2023-06-05] MEDS: LEVOTHYROXINE SODIUM 25 MCG TAB PO SCH (06:21)
[2023-06-05] MEDS: LEVOTHYROXINE SODIUM 100 MCG TAB PO SCH (06:21)
[2023-06-05] MEDS: SPIRONOLACTONE 25 MG TAB PO SCH ×2 (06:21→18:00)
[2023-06-05] MEDS: SODIUM CHLOR 0.9% PF (SALINE LOCK) 10ML VIAL/SYR IV SCH ×3 (06:21→21:37)
[2023-06-05] MEDS: SUCRALFATE 1 GM/10 ML ORAL SUSP PO SCH ×2 (06:23→18:02)
[2023-06-05] MEDS: VASOPRESSIN 20 UNITS in SODIUM CHL 0.9% 99 ML IV SCH (09:32)
[2023-06-05] MEDS ORDERED: TESTOSTERONE CYPIONATE 200 MG/ML 1ML VIAL IM ONE (10:30)
[2023-06-05] MEDS: ELUXADOLINE 100 MG PO SCH ×2 (10:33→21:36)
[2023-06-05] MEDS: CHOLESTYRAMINE 4 GM POWDER PO SCH ×2 (10:34→22:46)
[2023-06-05] MEDS: FLUDROCORTISONE ACETATE 0.1 MG TAB PO SCH ×2 (10:34→21:36)
[2023-06-05] MEDS: POTASSIUM CHL 20 Meq TABLET PO SCH ×2 (10:34→21:40)
[2023-06-05 10:46] LABS: Hematocrit 25.4 % (36.0-46.0); Hemoglobin 8.4 g/dL (12.2-16.2); Mean Corpuscular Hemoglobin 30.5 pg (28.0-32.0); Mean Corpuscular Hgb Conc. 32.9 g/dL (32.0-36.0); Mean Corpuscular Volume 92.6 fL (80.0-100.0); Red Blood Cells 2.75 10^6/uL (4.0-5.20); White Blood Cell 11.8 10^3/uL (4.4-10.8)
[2023-06-05 10:49] LABS: Chloride 92 mmol/L (98-107); Potassium 3.4 mmol/L (3.5-5.1); Sodium 129 mmol/L (136-145)
[2023-06-05 10:50] LABS: Anion Gap 5.8 (5-15); Carbon Dioxide 31.2 mmol/L (20-30)
[2023-06-05 10:52] LABS: Band Neutrophils % (manual) 0; Basophils % (manual) 0 (0.0-2.0); Eosinophils % (manual) 0 (0-7); Metamyelocytes % 0; Myelocytes % 0; Promyelocytes % 0; Reactive Lymphocytes 0
[2023-06-05 10:55] LABS: BUN/Creatinine Ratio 27.9 (10.0-20.0); Blood Urea Nitrogen 17 mg/dL (9-23); Glucose 100 mg/dL (74-106)
[2023-06-05 11:01] LABS: Blast Cells 1; Lymphocytes % (manual) 22 (10.0-50.0); Monocytes % (manual) 6 (0-12)
[2023-06-05 11:02] LABS: Hypochromia Moderate; Platelet Estimate Adequate; Stomatocytes Moderate; Target Cell FEW
[2023-06-05] MEDS: PHENYLEPHRINE INJ 80 MG in SODIUM CHL 0.9% 242 ML IV SCH (13:00)
[2023-06-05] MEDS: NOREPINEPHRINE BITARTRATE 32 MG in SODIUM CHL 0.9% 218 ML IV SCH (13:00)
[2023-06-05] MEDS: SODIUM FERR GLUC 62.5MG/5ML 125 MG in SODIUM CHL 0.9% 100 ML IV SCH (13:26)
[2023-06-05] MEDS ORDERED: POTASSIUM EFFERVESENT TAB 25 MEQ PO ONE (14:15)
[2023-06-05] MEDS: BUMETANIDE 1 MG TAB PO SCH (18:01)
[2023-06-05] MEDS: POTASSIUM CHL 20MEQ/100ML 100 ML IV SCH ×3 (18:03→21:38)
[2023-06-05] MEDS ORDERED: EPOETIN ALFA-EPBX 10,000 UNIT/1ML VIAL SC ONE (21:00)
[2023-06-06] VITALS (28 sets, daily range): BP systolic 76–101; BP diastolic 31–59; PULSE 95–103; RESP 13–24; TEMP 97.5–98.4; O2SAT 97–100
[2023-06-06] MEDS: METOCLOPRAMIDE HCL 5MG/ml INJ 2ml VIAL IV PRN ×6 (00:01→22:05)
[2023-06-06] MEDS: HYDROcodone-ACET 10/325MG TAB PO PRN ×6 (00:01→22:05)
[2023-06-06] MEDS: BUMETANIDE 1 MG TAB PO SCH ×2 (05:55→18:00)
[2023-06-06] MEDS: SUCRALFATE 1 GM/10 ML ORAL SUSP PO SCH ×3 (05:59→17:00)
[2023-06-06] MEDS: SODIUM CHLOR 0.9% PF (SALINE LOCK) 10ML VIAL/SYR IV SCH ×3 (05:59→21:26)
[2023-06-06] MEDS: SPIRONOLACTONE 25 MG TAB PO SCH (06:00)
[2023-06-06] MEDS: LEVOTHYROXINE SODIUM 100 MCG TAB PO SCH (06:00)
[2023-06-06] MEDS: LEVOTHYROXINE SODIUM 25 MCG TAB PO SCH (06:00)
[2023-06-06 06:18] LABS: Hemoglobin 8.4 g/dL (12.2-16.2)
[2023-06-06 06:20] LABS: Hematocrit 25.2 % (36.0-46.0)
[2023-06-06 06:26] LABS: % Iron Saturation 67.4 % (15-50)
[2023-06-06] MEDS: ELUXADOLINE 100 MG PO SCH ×2 (09:48→21:25)
[2023-06-06] MEDS: FLUDROCORTISONE ACETATE 0.1 MG TAB PO SCH ×2 (09:49→21:25)
[2023-06-06] MEDS: POTASSIUM CHL 20 Meq TABLET PO SCH (09:49)
[2023-06-06] MEDS: CHOLESTYRAMINE 4 GM POWDER PO SCH ×2 (11:00→23:00)
[2023-06-06] MEDS: SODIUM FERR GLUC 62.5MG/5ML 125 MG in SODIUM CHL 0.9% 100 ML IV SCH (12:07)
[2023-06-06] MEDS: MEGESTROL ACET 400MG/10ML ORAL SUSP GT SCH (21:24)
[2023-06-07] VITALS (20 sets, daily range): BP systolic 72–110; BP diastolic 40–73; PULSE 98–106; RESP 12–21; TEMP 97.3–98.4; O2SAT 96–100
[2023-06-07] MEDS: METOCLOPRAMIDE HCL 5MG/ml INJ 2ml VIAL IV PRN ×6 (02:05→23:17)
[2023-06-07] MEDS: HYDROcodone-ACET 10/325MG TAB PO PRN ×6 (02:06→22:26)
[2023-06-07 05:11] LABS: Hemoglobin 8.3 g/dL (12.2-16.2); Mean Corpuscular Hgb Conc. 32.9 g/dL (32.0-36.0)
[2023-06-07 05:13] LABS: Hematocrit 25.3 % (36.0-46.0); Mean Corpuscular Hemoglobin 30.6 pg (28.0-32.0); Red Blood Cells 2.72 10^6/uL (4.0-5.20); Red Cell Distribution Width 16.1 % (11.8-14.3); White Blood Cell 14.1 10^3/uL (4.4-10.8)
[2023-06-07 05:25] LABS: Albumin 2.4 g/dL (3.2-4.8); Alkaline Phosphatase 149 U/L (46-116); Anion Gap 6.2 (5-15); Aspartate Aminotransferase 27 U/L (13-40); BUN/Creatinine Ratio 31.6 (10.0-20.0); Blood Urea Nitrogen 18 mg/dL (9-23); Calcium 7.9 mg/dL (8.7-10.4); Carbon Dioxide 28.8 mmol/L (20-30); Chloride 94 mmol/L (98-107); Glucose 90 mg/dL (74-106); Potassium 3.5 mmol/L (3.5-5.1); Sodium 129 mmol/L (136-145)
[2023-06-07 05:26] LABS: Bilirubin, Total 0.5 mg/dL (0.2-1.0); Total Protein 5.3 g/dL (5.7-8.2)
[2023-06-07 05:34] LABS: Alanine Aminotransferase < 9 U/L (7-40)
[2023-06-07] MEDS: SODIUM CHLOR 0.9% PF (SALINE LOCK) 10ML VIAL/SYR IV SCH ×3 (05:38→21:51)
[2023-06-07] MEDS: SUCRALFATE 1 GM/10 ML ORAL SUSP PO SCH ×3 (05:39→18:07)
[2023-06-07] MEDS: SPIRONOLACTONE 25 MG TAB PO SCH ×2 (05:39→18:07)
[2023-06-07] MEDS: BUMETANIDE 1 MG TAB PO SCH ×2 (05:39→18:08)
[2023-06-07] MEDS: LEVOTHYROXINE SODIUM 25 MCG TAB PO SCH (05:40)
[2023-06-07] MEDS: LEVOTHYROXINE SODIUM 100 MCG TAB PO SCH (05:40)
[2023-06-07 05:45] LABS: Basophils % (manual) 0 (0.0-2.0); Blast Cells 0; Eosinophils % (manual) 0 (0-7); Myelocytes % 0; Promyelocytes % 0; Reactive Lymphocytes 0
[2023-06-07] MEDS: FLUDROCORTISONE ACETATE 0.1 MG TAB PO SCH ×2 (09:39→21:52)
[2023-06-07] MEDS: POTASSIUM CHL 20 Meq TABLET PO SCH (09:41)
[2023-06-07] MEDS: ELUXADOLINE 100 MG PO SCH ×2 (09:41→21:53)
[2023-06-07] MEDS: MEGESTROL ACET 400MG/10ML ORAL SUSP GT SCH ×2 (09:41→21:51)
[2023-06-07] MEDS: CHOLESTYRAMINE 4 GM POWDER PO SCH ×2 (11:00→22:27)
[2023-06-07 11:42] LABS: Band Neutrophils % (manual) 2; Lymphocytes % (manual) 21 (10.0-50.0); Metamyelocytes % 3; Monocytes % (manual) 8 (0-12)
[2023-06-07 11:43] LABS: Platelet Estimate Increased
[2023-06-08] VITALS (7 sets, daily range): BP systolic 84–97; BP diastolic 44–57; PULSE 93–101; RESP 20; TEMP 36.7; O2SAT 9–100
[2023-06-08] MEDS: METOCLOPRAMIDE HCL 5MG/ml INJ 2ml VIAL IV PRN ×5 (03:01→21:36)
[2023-06-08] MEDS: HYDROcodone-ACET 10/325MG TAB PO PRN ×5 (03:02→21:30)
[2023-06-08] MEDS: BUMETANIDE 1 MG TAB PO SCH ×2 (06:00→17:46)
[2023-06-08] MEDS: SODIUM CHLOR 0.9% PF (SALINE LOCK) 10ML VIAL/SYR IV SCH ×3 (06:54→21:30)
[2023-06-08] MEDS: SPIRONOLACTONE 25 MG TAB PO SCH ×2 (06:54→17:42)
[2023-06-08] MEDS: LEVOTHYROXINE SODIUM 100 MCG TAB PO SCH (06:55)
[2023-06-08] MEDS: LEVOTHYROXINE SODIUM 25 MCG TAB PO SCH (07:00)
[2023-06-08] MEDS: SUCRALFATE 1 GM/10 ML ORAL SUSP PO SCH ×2 (07:00→16:21)
[2023-06-08] MEDS: MEGESTROL ACET 400MG/10ML ORAL SUSP GT SCH ×2 (09:11→21:37)
[2023-06-08] MEDS: POTASSIUM CHL 20 Meq TABLET PO SCH (09:19)
[2023-06-08] MEDS: FLUDROCORTISONE ACETATE 0.1 MG TAB PO SCH ×2 (09:20→21:30)
[2023-06-08] MEDS: ELUXADOLINE 100 MG PO SCH ×2 (09:24→21:31)
[2023-06-08] MEDS: CHOLESTYRAMINE 4 GM POWDER PO SCH ×2 (09:25→23:00)
[2023-06-09] VITALS (7 sets, daily range): BP systolic 84–90; BP diastolic 44–59; PULSE 100–109; RESP 16–22; TEMP 97.7–98.4; O2SAT 97–100
[2023-06-09] MEDS: METOCLOPRAMIDE HCL 5MG/ml INJ 2ml VIAL IV PRN ×5 (01:32→22:11)
[2023-06-09] MEDS: HYDROcodone-ACET 10/325MG TAB PO PRN ×4 (01:33→22:12)
[2023-06-09] MEDS: BUMETANIDE 1 MG TAB PO SCH ×2 (06:00→18:00)
[2023-06-09] MEDS: LEVOTHYROXINE SODIUM 100 MCG TAB PO SCH (06:16)
[2023-06-09] MEDS: SUCRALFATE 1 GM/10 ML ORAL SUSP PO SCH ×2 (06:16→17:40)
[2023-06-09] MEDS: SPIRONOLACTONE 25 MG TAB PO SCH ×2 (06:16→18:22)
[2023-06-09] MEDS: LEVOTHYROXINE SODIUM 25 MCG TAB PO SCH (06:17)
[2023-06-09] MEDS: SODIUM CHLOR 0.9% PF (SALINE LOCK) 10ML VIAL/SYR IV SCH ×3 (06:17→22:12)
[2023-06-09] MEDS: ELUXADOLINE 100 MG PO SCH ×2 (10:00→22:00)
[2023-06-09] MEDS: POTASSIUM CHL 20 Meq TABLET PO SCH (10:43)
[2023-06-09] MEDS: FLUDROCORTISONE ACETATE 0.1 MG TAB PO SCH ×2 (10:45→22:11)
[2023-06-09] MEDS: MEGESTROL ACET 400MG/10ML ORAL SUSP GT SCH ×2 (10:47→22:00)
[2023-06-09 10:50] LABS: Hemoglobin 8.2 g/dL (12.2-16.2)
[2023-06-09 10:53] LABS: Hematocrit 25.2 % (36.0-46.0); Mean Corpuscular Hemoglobin 30.2 pg (28.0-32.0); Mean Corpuscular Hgb Conc. 32.8 g/dL (32.0-36.0); Mean Corpuscular Volume 92.2 fL (80.0-100.0); Red Blood Cells 2.73 10^6/uL (4.0-5.20); Red Cell Distribution Width 16.4 % (11.8-14.3)
[2023-06-09 10:55] LABS: Basophils % (manual) 0 (0.0-2.0); Blast Cells 0; Eosinophils % (manual) 0 (0-7); Promyelocytes % 0; Reactive Lymphocytes 0
[2023-06-09] MEDS: CHOLESTYRAMINE 4 GM POWDER PO SCH ×2 (11:00→22:12)
[2023-06-09 11:13] LABS: Alanine Aminotransferase 11 U/L (7-40); Albumin 2.4 g/dL (3.2-4.8); Alkaline Phosphatase 160 U/L (46-116); Anion Gap 5.8 (5-15); Aspartate Aminotransferase 29 U/L (13-40); BUN/Creatinine Ratio 38.1 (10.0-20.0); Blood Urea Nitrogen 24 mg/dL (9-23); Calcium 8.3 mg/dL (8.5-10.1); Carbon Dioxide 29.2 mmol/L (20-30); Chloride 96 mmol/L (98-107); Glucose 111 mg/dL (74-106); Sodium 131 mmol/L (136-145)
[2023-06-09 11:14] LABS: Bilirubin, Total 0.5 mg/dL (0.2-1.0); Total Protein 5.1 g/dL (5.7-8.2)
[2023-06-09 11:29] LABS: Band Neutrophils % (manual) 3; Lymphocytes % (manual) 28 (10.0-50.0); Metamyelocytes % 1; Monocytes % (manual) 6 (0-12); Myelocytes % 1; Platelet Estimate Increased
[2023-06-10] VITALS (8 sets, daily range): BP systolic 84–125; BP diastolic 45–57; PULSE 62–107; RESP 16–21; TEMP 98–98.6; O2SAT 92–99
[2023-06-10] MEDS: METOCLOPRAMIDE HCL 5MG/ml INJ 2ml VIAL IV PRN ×5 (02:43→22:40)
[2023-06-10] MEDS: HYDROcodone-ACET 10/325MG TAB PO PRN ×5 (02:43→22:40)
[2023-06-10] MEDS: BUMETANIDE 1 MG TAB PO SCH ×3 (06:51→22:40)
[2023-06-10] MEDS: SPIRONOLACTONE 25 MG TAB PO SCH ×2 (06:51→18:34)
[2023-06-10] MEDS: LEVOTHYROXINE SODIUM 25 MCG TAB PO SCH (06:52)
[2023-06-10] MEDS: SUCRALFATE 1 GM/10 ML ORAL SUSP PO SCH ×2 (06:52→16:55)
[2023-06-10] MEDS: LEVOTHYROXINE SODIUM 100 MCG TAB PO SCH (06:52)
[2023-06-10] MEDS: MEGESTROL ACET 400MG/10ML ORAL SUSP GT SCH ×2 (09:16→22:40)
[2023-06-10] MEDS: POTASSIUM CHL 20 Meq TABLET PO SCH (09:16)
[2023-06-10] MEDS: ELUXADOLINE 100 MG PO SCH ×2 (09:16→18:57)
[2023-06-10] MEDS: FLUDROCORTISONE ACETATE 0.1 MG TAB PO SCH ×2 (09:16→18:34)
[2023-06-10] MEDS: CHOLESTYRAMINE 4 GM POWDER PO SCH (10:46)
[2023-06-11] VITALS (7 sets, daily range): BP systolic 83–99; BP diastolic 40–61; PULSE 83–106; RESP 17–22; TEMP 97.5–98.3; O2SAT 94–100
[2023-06-11] MEDS: METOCLOPRAMIDE HCL 5MG/ml INJ 2ml VIAL IV PRN ×4 (03:03→20:33)
[2023-06-11] MEDS: HYDROcodone-ACET 10/325MG TAB PO PRN ×4 (03:03→19:18)
[2023-06-11] MEDS: BUMETANIDE 1 MG TAB PO SCH ×3 (07:00→21:25)
[2023-06-11] MEDS: SPIRONOLACTONE 25 MG TAB PO SCH ×2 (07:03→17:45)
[2023-06-11] MEDS: MEGESTROL ACET 400MG/10ML ORAL SUSP GT SCH ×2 (08:22→21:25)
[2023-06-11] MEDS: FLUDROCORTISONE ACETATE 0.1 MG TAB PO SCH (08:22)
[2023-06-11] MEDS: POTASSIUM CHL 20 Meq TABLET PO SCH (08:23)
[2023-06-11] MEDS: metOLazone 5 MG TAB PO SCH (08:48)
[2023-06-11] MEDS: ELUXADOLINE 100 MG PO SCH (08:49)
[2023-06-12] MEDS: METOCLOPRAMIDE HCL 5MG/ml INJ 2ml VIAL IV PRN ×3 (00:20→15:34)
[2023-06-12] MEDS: HYDROcodone-ACET 10/325MG TAB PO PRN ×4 (00:20→15:34)
[2023-06-12 05:00] VITALS: BP 93/51; PULSE 58; RESP 22; TEMP 98.4; O2SAT 96
[2023-06-12] MEDS: SPIRONOLACTONE 25 MG TAB PO SCH ×2 (05:11→18:00)
[2023-06-12] MEDS: BUMETANIDE 1 MG TAB PO SCH ×2 (05:12→14:00)
[2023-06-12 08:00] VITALS: PULSE 105; O2SAT 96
[2023-06-12 09:00] VITALS: BP 87/51; PULSE 80; RESP 16; TEMP 98.6; O2SAT 95
[2023-06-12] MEDS: metOLazone 5 MG TAB PO SCH (10:00)
[2023-06-12] MEDS: MEGESTROL ACET 400MG/10ML ORAL SUSP GT SCH (10:00)
[2023-06-12] MEDS: POTASSIUM CHL 20 Meq TABLET PO SCH (10:05)
[2023-06-12] MEDS: ELUXADOLINE 100 MG PO SCH (10:06)
[2023-06-12] MEDS: FLUDROCORTISONE ACETATE 0.1 MG TAB PO SCH (10:10)
[2023-06-12 13:00] VITALS: BP 81/40; PULSE 102; RESP 18; TEMP 98; O2SAT 95
[2023-06-12 16:48] VITALS: BP 88/56; PULSE 104; RESP 18; TEMP 97.6; O2SAT 95
[2023-06-12 17:14] VITALS: BP 81/40; PULSE 104; RESP 16; TEMP 36.4; O2SAT 95
== END 2023-06-12 18:49 | DRG 871 ==
LOC: ER 08:54 → EDBD 08:54 → OVERFLOW 17:37 → ICU WEST 05-11 15:01 → DOU IN ICU 06-01 18:46 → TELE-WESTW 06-07 14:51
PROVIDERS: ADMIT Nurse Practitioner Acute Care; ATTEND Internal Medicine Cardiovascular Disease
PROC: 02HV33Z Insertion of Infusion Device into Superior Vena Cava, Percutaneous Approach (ICD-10-PCS; principal; 2023-05-10)
DX: A41.9 Sepsis, unspecified organism (principal); G93.41 Metabolic encephalopathy; R65.21 Severe sepsis with septic shock; N17.0 Acute kidney failure with tubular necrosis; N39.0 Urinary tract infection, site not specified; E87.1 Hypo-osmolality and hyponatremia; J44.1 Chronic obstructive pulmonary disease with (acute) exacerbation; I47.20 Ventricular tachycardia, unspecified; I47.1 Supraventricular tachycardia; B37.0 Candidal stomatitis; K90.9 Intestinal malabsorption, unspecified; I13.0 Hypertensive heart and chronic kidney disease with heart failure and stage 1 through stage 4 chronic kidney disease, or unspecified chronic kidney disease; I50.9 Heart failure, unspecified; I48.91 Unspecified atrial fibrillation; B96.1 Klebsiella pneumoniae [K. pneumoniae] as the cause of diseases classified elsewhere; B96.4 Proteus (mirabilis) (morganii) as the cause of diseases classified elsewhere; R73.9 Hyperglycemia, unspecified; E88.09 Other disorders of plasma-protein metabolism, not elsewhere classified; E83.39 Other disorders of phosphorus metabolism; N18.9 Chronic kidney disease, unspecified; E87.6 Hypokalemia; E03.9 Hypothyroidism, unspecified; I89.0 Lymphedema, not elsewhere classified; E86.0 Dehydration; E66.01 Morbid (severe) obesity due to excess calories; K52.9 Noninfective gastroenteritis and colitis, unspecified; G89.29 Other chronic pain; Z74.01 Bed confinement status; Z88.0 Allergy status to penicillin; Z79.899 Other long term (current) drug therapy; Z80.0 Family history of malignant neoplasm of digestive organs; Z83.3 Family history of diabetes mellitus; Z98.84 Bariatric surgery status; Z88.1 Allergy status to other antibiotic agents
CPT/HCPCS: 36415; 36600; 71045; 74018; 74021; 76705; 76775; 80048; 80053; 80202; 81001; 82306; 82565; 82570; 82728; 82805; 82962; 83036; 83540; 83550; 83605; 83735; 83880; 83935; 83970; 84100; 84132; 84156; 84300; 84484; 85007; 85014; 85018; 85025; 85027; 85045; 87040; 87081; 87086; 87088; 87186; 87493; 93005; 93306; 93970; 96365; 96367; 96375; G0378; J0153; J0696; J1956; J2405; J2543; J3480; J7060; P9047; Q9956

== ENCOUNTER 2023-06-23 06:37 | Inpatient (IN) | payer MEDICARE, OTHER ==
[~2023-06-23] VITALS: Ht 167.6 cm; Wt 121.2 kg
[2023-06-23] VITALS (29 sets, daily range): BP systolic 60–73; BP diastolic 22–47; PULSE 96–127; RESP 8–26; TEMP 96.8; O2SAT 95–100
[~2023-06-23 06:37] MED LIST changes: +BUMEX2MG PO; -CHOL4POW44 PO; -DICL1GEL73 TOP; -ELUX1TAB2 PO; -FURO40TA4 PO; +HYDR-4795 PO; +LINA290C OR; -METO-517 PO; -MIRA50TA OR; +PANT40TA2 PO
[2023-06-23] MEDS ORDERED: SODIUM CHLORIDE 0.9% 1,000 ML IVB ONE (07:00)
[2023-06-23] MEDS ORDERED: SODIUM CHLORIDE 0.9% 1,000 ML IV ONE ×2 (07:00→17:30)
[2023-06-23] MEDS ORDERED: cefTRIAXone 1GM/50ML D5W 50 ML IV ONE (07:00)
[2023-06-23] MEDS ORDERED: AZITHROMYCIN 500MG/ 250ML 250 ML IV ONE (07:00)
[2023-06-23 07:45] LABS: Hematocrit 29.6 % (36.0-46.0); Hemoglobin 9.3 g/dL (12.2-16.2); Red Blood Cells 2.93 10^6/uL (4.0-5.20)
[2023-06-23 07:46] LABS: Mean Corpuscular Hemoglobin 31.7 pg (28.0-32.0); Mean Corpuscular Hgb Conc. 31.4 g/dL (32.0-36.0); Mean Corpuscular Volume 100.9 fL (80.0-100.0)
[2023-06-23 07:49] LABS: Red Cell Distribution Width 21.6 % (11.8-14.3)
[2023-06-23 07:50] LABS: Basophils % (manual) 0 (0.0-2.0); Blast Cells 0; Eosinophils % (manual) 0 (0-7); Metamyelocytes % 0; Myelocytes % 0; Promyelocytes % 0; Reactive Lymphocytes 0
[2023-06-23] MEDS ORDERED: SODIUM CHLORIDE 0.9% 3,000 ML IV ONE (08:15)
[2023-06-23 08:17] LABS: Band Neutrophils % (manual) 1; Lymphocytes % (manual) 5 (10.0-50.0); Monocytes % (manual) 5 (0-12)
[2023-06-23 08:19] LABS: Platelet Estimate Increased
[2023-06-23 08:23] LABS: INR 2.3 (0.9-1.15); Partial Thromboplastin Time 40.7 SEC (24.5-34.5); Prothrombin Time 22.9 sec (9.3-11.8)
[2023-06-23 08:36] LABS: Alanine Aminotransferase 20 U/L (7-40); Albumin 2.5 g/dL (3.2-4.8); Alkaline Phosphatase 176 U/L (46-116); Aspartate Aminotransferase 46 U/L (13-40); BUN/Creatinine Ratio 20.1 (10.0-20.0); Bilirubin, Total 0.9 mg/dL (0.2-1.0); Blood Urea Nitrogen 64 mg/dL (9-23); Calcium 7.2 mg/dL (8.5-10.1); Carbon Dioxide 12 mmol/L (20-30); Glucose 110 mg/dL (74-106); Total Protein 5.6 g/dL (5.7-8.2)
[2023-06-23 08:55] LABS: Anion Gap 26 (5-15); Chloride 86 mmol/L (98-107); Potassium 3.9 mmol/L (3.5-5.1); Sodium 124 mmol/L (136-145)
[2023-06-23 09:28] LABS: Lactic Acid w/Reflex 12.2 mmol/L (0.4-2.0)
[2023-06-23] MEDS ORDERED: NITROGLYCERIN 0.4 MG SL TAB SL PRN (09:30)
[2023-06-23] MEDS ORDERED: ACETAMINOPHEN 325 MG TAB PO PRN (09:30)
[2023-06-23] MEDS ORDERED: VANCOMYCIN PER PHARMACY 0 MG IV SCH (09:30)
[2023-06-23] MEDS ORDERED: CEFEPIME 1GM/ 50ML 50 ML IV ONE (09:30)
[2023-06-23] MEDS ORDERED: MORPHINE SULFATE INJ 2 MG/ml SYRG IV PRN (09:30)
[2023-06-23] MEDS: MULTIPLE VITAMIN TAB PO SCH (10:00)
[2023-06-23] MEDS: ZINC SULFATE 220mg CAP or TAB PO SCH (10:00)
[2023-06-23] MEDS: ASCORBIC ACID 500 MG TAB PO SCH ×2 (10:00→22:40)
[2023-06-23] MEDS: SODIUM CHLORIDE 0.9% 1,000 ML IV SCH ×2 (10:12→18:47)
[2023-06-23] MEDS: ENOXAPARIN SOD 30 MG/0.3 ML SYRINGE SC SCH (10:12)
[2023-06-23] MEDS ORDERED: VANCOMYCIN 1GM/250ML 250 ML IV ONE (10:30)
[2023-06-23] MEDS ORDERED: PANTOPRAZOLE 40 MG/10 ML VIAL INJ IV ONE (10:30)
[2023-06-23 10:39] LABS: Triglycerides 257 mg/dL (< 150)
[2023-06-23 10:40] LABS: LDL Cholesterol 33 mg/dL (< 100)
[2023-06-23 10:41] LABS: Cholesterol 88 mg/dL (< 200); HDL Cholesterol < 5 mg/dL (40-59)
[2023-06-23] MEDS ORDERED: MEROPENEM 1GM IVPB 100 ML IV ONE (10:45)
[2023-06-23] MEDS ORDERED: VANCOMYCIN 500 MG in D5W 5% 100 ML IV ONE ×2 (17:00→22:00)
[2023-06-23 19:38] LABS: Alanine Aminotransferase 17 U/L (7-40); Albumin 2.2 g/dL (3.2-4.8); Alkaline Phosphatase 166 U/L (46-116); Anion Gap 21 (5-15); Aspartate Aminotransferase 61 U/L (13-40); BUN/Creatinine Ratio 15.6 (10.0-20.0); Bilirubin, Total 0.7 mg/dL (0.2-1.0); Blood Urea Nitrogen 44 mg/dL (9-23); Calcium 6.2 mg/dL (8.7-10.4); Carbon Dioxide 13 mmol/L (20-30); Chloride 93 mmol/L (98-107); Glucose 143 mg/dL (74-106); Lactic Acid w/Reflex 6.5 mmol/L (0.4-2.0); Sodium 127 mmol/L (136-145); Total Protein 5.1 g/dL (5.7-8.2)
[2023-06-24] VITALS (45 sets, daily range): BP systolic 44–153; BP diastolic 20–95; PULSE 93–126; RESP 10–35; TEMP 96.8–97.7; O2SAT 84–100
[2023-06-24] MEDS: MEROPENEM 1GM IVPB 100 ML IV SCH ×3 (00:32→21:45)
[2023-06-24 00:58] LABS: Alanine Aminotransferase 18 U/L (7-40); Albumin 2.2 g/dL (3.2-4.8); Alkaline Phosphatase 165 U/L (46-116); Anion Gap 18 (5-15); Aspartate Aminotransferase 55 U/L (13-40); BUN/Creatinine Ratio 17.1 (10.0-20.0); Blood Urea Nitrogen 49 mg/dL (9-23); Calcium 6.3 mg/dL (8.7-10.4); Carbon Dioxide 14 mmol/L (20-30); Chloride 94 mmol/L (98-107); Glucose 150 mg/dL (74-106); Sodium 126 mmol/L (136-145)
[2023-06-24 00:59] LABS: Bilirubin, Total 0.7 mg/dL (0.2-1.0); Lactic Acid w/Reflex 5.1 mmol/L (0.4-2.0)
[2023-06-24 01:22] LABS: Potassium 2.7 mmol/L (3.5-5.1)
[2023-06-24 06:11] LABS: Hemoglobin 8.7 g/dL (12.2-16.2); Mean Corpuscular Volume 99.4 fL (80.0-100.0)
[2023-06-24 06:13] LABS: Hematocrit 26.7 % (36.0-46.0); Mean Corpuscular Hemoglobin 32.2 pg (28.0-32.0); Mean Corpuscular Hgb Conc. 32.4 g/dL (32.0-36.0); Red Blood Cells 2.69 10^6/uL (4.0-5.20); White Blood Cell 23.9 10^3/uL (4.4-10.8)
[2023-06-24 06:16] LABS: Red Cell Distribution Width 21.3 % (11.8-14.3)
[2023-06-24 06:18] LABS: Band Neutrophils % (manual) 0; Basophils % (manual) 0 (0.0-2.0); Blast Cells 0; Eosinophils % (manual) 0 (0-7); Metamyelocytes % 0; Promyelocytes % 0; Reactive Lymphocytes 0
[2023-06-24 06:35] LABS: Alanine Aminotransferase 19 U/L (7-40); Albumin 2.2 g/dL (3.2-4.8); Alkaline Phosphatase 171 U/L (46-116); Anion Gap 17 (5-15); Aspartate Aminotransferase 53 U/L (13-40); BUN/Creatinine Ratio 17.6 (10.0-20.0); Blood Urea Nitrogen 52 mg/dL (9-23); Calcium 6.4 mg/dL (8.7-10.4); Carbon Dioxide 16 mmol/L (20-30); Chloride 94 mmol/L (98-107); Glucose 140 mg/dL (74-106); Sodium 127 mmol/L (136-145)
[2023-06-24 06:36] LABS: Bilirubin, Total 0.7 mg/dL (0.2-1.0); Phosphorus 4.5 mg/dL (2.4-5.1); Total Protein 5.2 g/dL (5.7-8.2)
[2023-06-24 06:44] LABS: Potassium 2.8 mmol/L (3.5-5.1)
[2023-06-24 06:54] LABS: Uric Acid 19.4 mg/dL (3.1-7.8)
[2023-06-24 06:57] LABS: Bilirubin, Direct 0.5 mg/dL (<0.3)
[2023-06-24] MEDS ORDERED: POTASSIUM CHL 20MEQ/100ML 100 ML IV ONE (07:15)
[2023-06-24] MEDS ORDERED: POTASSIUM CHL 20MEQ/100ML 100 ML IV SCH (07:30)
[2023-06-24 07:47] LABS: Lymphocytes % (manual) 9 (10.0-50.0); Monocytes % (manual) 1 (0-12); Myelocytes % 3; Platelet Estimate Increased
[2023-06-24] MEDS: PANTOPRAZOLE 40 MG/10 ML VIAL INJ IV SCH (08:04)
[2023-06-24] MEDS: ENOXAPARIN SOD 30 MG/0.3 ML SYRINGE SC SCH (08:04)
[2023-06-24] MEDS: POTASSIUM CHL 20MEQ/100ML 100 ML IV SCH ×5 (08:05→15:58)
[2023-06-24] MEDS: LEVOTHYROXINE SODIUM 50 MCG TAB PO SCH (08:05)
[2023-06-24] MEDS: ASCORBIC ACID 500 MG TAB PO SCH (08:06)
[2023-06-24] MEDS: MULTIPLE VITAMIN TAB PO SCH (08:06)
[2023-06-24] MEDS: ZINC SULFATE 220mg CAP or TAB PO SCH (08:06)
[2023-06-24] MEDS ORDERED: FUROSEMIDE INJECTION 100 MG in D5W 5% 100 ML IV SCH (09:00)
[2023-06-24] MEDS ORDERED: DOPamine 1600MCG/ML D5W 250 ML IV SCH (09:00)
[2023-06-24] MEDS ORDERED: POTASSIUM EFFERVESENT TAB 25 MEQ PO SCH (10:00)
[2023-06-24] MEDS ORDERED: CEFEPIME 1GM/ 50ML 50 ML IV SCH (10:00)
[2023-06-24 10:12] LABS: Lactic Acid w/Reflex 4.1 mmol/L (0.4-2.0)
[2023-06-24 11:40] LABS: Urine Bacteria FEW /hpf (None Seen); Urine Blood 3+ /uL (Negative); Urine Budding Yeast MANY /hpf (None Seen); Urine Clarity HAZY (Clear); Urine Color Colorless (Yellow); Urine Mucus FEW (None Seen); Urine Protein, UAD TRACE (Negative); Urine Specific Gravity 1.007 (1.001-1.035); Urine Urobilinogen Normal (Negative); Urine WBC 84 /hpf (0 - 5)
[2023-06-24 12:46] LABS: Protein, Urine 53.6 mg/dL (0.0-11.9)
[2023-06-24 12:48] LABS: Creatinine, Urine 4.2 mg/dL (30.0-125.0)
[2023-06-24 14:56] LABS: Lactic Acid w/Reflex 7.3 mmol/L (0.4-2.0)
[2023-06-24] MEDS ORDERED: ROCURONIUM 10MG/ML 10ML VIAL IV ONE ×2 (16:41→16:45)
[2023-06-24] MEDS ORDERED: MIDAZOLAM DRIP 50 mg/50mL 50 ML IV ONE (16:42)
[2023-06-24] MEDS ORDERED: ETOMIDATE (2MG/ML) 20ML VIAL IV ONE ×2 (16:42→16:45)
[2023-06-24] MEDS ORDERED: PROPOFOL 0 ML IV ONE (16:43)
[2023-06-24] MEDS ORDERED: NOREPINEPHRINE 8 MG/250ML KIT 250 ML IV ONE (16:43)
[2023-06-24] MEDS ORDERED: fentaNYL Drip 2500mCg/250mlNS 250 ML IV ONE (16:43)
[2023-06-24] MEDS: MIDAZOLAM DRIP 50 mg/50mL 50 ML IV SCH ×2 (17:00→18:52)
[2023-06-24] MEDS: fentaNYL Drip 2500mCg/250mlNS 250 ML IV SCH (17:00)
[2023-06-24] MEDS: PROPOFOL 100 ML IV SCH (17:00)
[2023-06-24] MEDS ORDERED: VANCOMYCIN PER PHARMACY 0 MG IV SCH (17:45)
[2023-06-24] MEDS ORDERED: SODIUM BICARBONATE 50ML VIAL 150 ML in D5W 5% 1,000 ML IV SCH ×2 (17:45→23:00)
[2023-06-24] MEDS ORDERED: SPIRONOLACTONE 25 MG TAB PO SCH (18:00)
[2023-06-24] MEDS ORDERED: VANCOMYCIN 1GM/250ML 250 ML IV ONE (18:00)
[2023-06-24] MEDS: NOREPINEPHRINE 8 MG/250ML KIT 250 ML IV SCH ×2 (18:09→21:48)
[2023-06-24] MEDS ORDERED: SODIUM BICARBONATE 8.4 % INJ 50ML VIAL IV ONE ×2 (18:15→23:00)
[2023-06-24 19:08] LABS: Base Excess -21.3 mmol/L (-2.0-2.0)
[2023-06-24] MEDS: VASOPRESSIN 20 UNITS in SODIUM CHL 0.9% 99 ML IV SCH (19:52)
[2023-06-24] MEDS: PHENYLEPHRINE IV 250 ML IV SCH ×2 (20:05→22:29)
[2023-06-24 21:43] LABS: Hematocrit 30.4 % (36.0-46.0); Hemoglobin 9.1 g/dL (12.2-16.2); Mean Corpuscular Hemoglobin 31.4 pg (28.0-32.0); Mean Corpuscular Hgb Conc. 29.8 g/dL (32.0-36.0); Mean Corpuscular Volume 105.3 fL (80.0-100.0); Red Blood Cells 2.89 10^6/uL (4.0-5.20); White Blood Cell 27.9 10^3/uL (4.4-10.8)
[2023-06-24 21:49] LABS: Basophils % (manual) 0 (0.0-2.0); Blast Cells 0; Eosinophils % (manual) 0 (0-7); Promyelocytes % 0; Reactive Lymphocytes 0
[2023-06-24] MEDS: MUPIROCIN 2% OINT 15gm or 22gm FOR MRSA NARES EACHNOSTRI SCH (22:09)
[2023-06-24] MEDS ORDERED: ALBUMIN 5% 500 ML IV ONE (22:15)
[2023-06-24 22:20] LABS: Band Neutrophils % (manual) 9; Lymphocytes % (manual) 10 (10.0-50.0)
[2023-06-24 22:22] LABS: Metamyelocytes % 2; Monocytes % (manual) 3 (0-12); Myelocytes % 2
[2023-06-24 22:23] LABS: Platelet Estimate Increased
[2023-06-24 22:25] LABS: Anisocytosis Moderate; Macrocytosis Moderate
[2023-06-24 22:34] LABS: Chloride 95 mmol/L (98-107); Sodium 125 mmol/L (136-145)
[2023-06-24 22:36] LABS: Anion Gap 20.00001 (5-15)
[2023-06-24 22:37] LABS: Calcium 6.5 mg/dL (8.7-10.4)
[2023-06-24 22:41] LABS: Glucose 267 mg/dL (74-106)
[2023-06-24 22:42] LABS: Alkaline Phosphatase 188 U/L (46-116); Blood Urea Nitrogen 43 mg/dL (9-23)
[2023-06-24 22:43] LABS: Alanine Aminotransferase 22 U/L (7-40); Albumin 2.2 g/dL (3.2-4.8); Aspartate Aminotransferase 69 U/L (13-40)
[2023-06-24 22:44] LABS: Bilirubin, Total 0.7 mg/dL (0.2-1.0); Total Protein 5.1 g/dL (5.7-8.2)
[2023-06-24 22:55] LABS: Lactic Acid w/Reflex 16.9 mmol/L (0.4-2.0); Potassium 5.3 mmol/L (3.5-5.1)
[2023-06-24] MEDS ORDERED: HYDROCORTISONE SOD SUCC 100 MG/2ML INJ VIAL IV ONE (23:00)
[2023-06-24 23:02] LABS: Carbon Dioxide < 10 mmol/L (20-30)
[2023-06-24] MEDS ORDERED: SODIUM CHLORIDE 0.9% 1,000 ML IV ONE (23:45)
[2023-06-24] MEDS ORDERED: SODIUM ZIRCONIUM CYCL 10 GM PAK PO ONE (23:45)
[2023-06-25] VITALS (103 sets, daily range): BP systolic 49–240; BP diastolic 28–206; PULSE 102–126; RESP 9–41; TEMP 97.3–97.6; O2SAT 87–100
[2023-06-25] MEDS: PHENYLEPHRINE IV 250 ML IV SCH ×3 (00:16→06:07)
[2023-06-25] MEDS: CALCIUM GLUC 1,000mg/50ml-NS 50 ML IV SCH ×2 (00:40)
[2023-06-25] MEDS ORDERED: SODIUM BICARBONATE 8.4 % INJ 50ML VIAL IV ONE ×3 (02:17→09:00)
[2023-06-25] MEDS: fentaNYL Drip 2500mCg/250mlNS 250 ML IV SCH ×3 (02:34→18:41)
[2023-06-25] MEDS: NOREPINEPHRINE 8 MG/250ML KIT 250 ML IV SCH ×2 (02:38→07:02)
[2023-06-25] MEDS ORDERED: VASOPRESSIN 20 UNIT/ML ONE (03:31)
[2023-06-25] MEDS: SODIUM BICARBONATE 50ML VIAL 150 ML in D5W 5% 1,000 ML IV SCH ×4 (03:42→18:41)
[2023-06-25] MEDS: VASOPRESSIN 20 UNITS in SODIUM CHL 0.9% 99 ML IV SCH ×2 (03:43→15:47)
[2023-06-25] MEDS: MIDAZOLAM DRIP 50 mg/50mL 50 ML IV SCH ×4 (03:47→21:13)
[2023-06-25 04:49] LABS: Hemoglobin 7.9 g/dL (12.2-16.2)
[2023-06-25 04:51] LABS: Hematocrit 25.5 % (36.0-46.0); Mean Corpuscular Hemoglobin 31.6 pg (28.0-32.0); Mean Corpuscular Hgb Conc. 30.9 g/dL (32.0-36.0); Mean Corpuscular Volume 102.4 fL (80.0-100.0); Red Blood Cells 2.49 10^6/uL (4.0-5.20); White Blood Cell 28.1 10^3/uL (4.4-10.8)
[2023-06-25 04:55] LABS: Red Cell Distribution Width 21.4 % (11.8-14.3)
[2023-06-25 04:57] LABS: Basophils % (manual) 0 (0.0-2.0); Blast Cells 0; Eosinophils % (manual) 0 (0-7); Myelocytes % 0; Reactive Lymphocytes 0
[2023-06-25 05:35] LABS: Alanine Aminotransferase 46 U/L (7-40); Albumin 2.5 g/dL (3.2-4.8); Alkaline Phosphatase 171 U/L (46-116); Anion Gap 25.00001 (5-15); Aspartate Aminotransferase 347 U/L (13-40); BUN/Creatinine Ratio 17.8 (10.0-20.0); Bilirubin, Total 1.3 mg/dL (0.2-1.0); Blood Urea Nitrogen 51 mg/dL (9-23); Calcium 6.6 mg/dL (8.7-10.4); Chloride 95 mmol/L (98-107); Glucose 239 mg/dL (74-106); Magnesium 1.5 mg/dL (1.6-2.6); Potassium 4.2 mmol/L (3.5-5.1)
[2023-06-25 05:43] LABS: Sodium 130 mmol/L (136-145)
[2023-06-25 05:45] LABS: Carbon Dioxide < 10 mmol/L (20-30)
[2023-06-25] MEDS: LEVOTHYROXINE SODIUM 50 MCG TAB PO SCH (06:07)
[2023-06-25] MEDS: MUPIROCIN 2% OINT 15gm or 22gm FOR MRSA NARES EACHNOSTRI SCH ×2 (08:01→21:10)
[2023-06-25] MEDS: MEROPENEM 1GM IVPB 100 ML IV SCH ×2 (08:01→21:10)
[2023-06-25] MEDS: PANTOPRAZOLE 40 MG/10 ML VIAL INJ IV SCH (08:01)
[2023-06-25] MEDS: ENOXAPARIN SOD 40 MG/0.4 ML SYRINGE SC SCH (08:01)
[2023-06-25 08:11] LABS: Base Excess -25.1 mmol/L (-2.0-2.0)
[2023-06-25] MEDS: NOREPINEPHRINE BITARTRATE 32 MG in SODIUM CHL 0.9% 218 ML IV SCH (08:45)
[2023-06-25] MEDS: PHENYLEPHRINE INJ 80 MG in SODIUM CHL 0.9% 242 ML IV SCH (08:48)
[2023-06-25 09:24] LABS: Band Neutrophils % (manual) 13; Lymphocytes % (manual) 8 (10.0-50.0); Macrocytosis Slight; Metamyelocytes % 4; Monocytes % (manual) 3 (0-12); Platelet Estimate Adequate; Promyelocytes % 2
[2023-06-25 09:25] LABS: Anisocytosis Slight
[2023-06-25] MEDS: PROPOFOL 100 ML IV SCH (10:38)
[2023-06-25] MEDS: EPINEPHrine HCL 250 ML IV SCH ×2 (10:57→20:04)
[2023-06-25 14:20] LABS: Base Excess -24.3 mmol/L (-2.0-2.0)
[2023-06-25 16:42] LABS: Chloride 94 mmol/L (98-107); Potassium 3.9 mmol/L (3.5-5.1); Sodium 133 mmol/L (136-145)
[2023-06-25 16:43] LABS: Anion Gap 29.00001 (5-15); Calcium 6.1 mg/dL (8.7-10.4)
[2023-06-25 16:48] LABS: BUN/Creatinine Ratio 18.1 (10.0-20.0); Blood Urea Nitrogen 49 mg/dL (9-23); Glucose 255 mg/dL (74-106)
[2023-06-25 16:57] LABS: Carbon Dioxide < 10 mmol/L (20-30)
[2023-06-26] VITALS (58 sets, daily range): BP systolic 0–91; BP diastolic 0–40; PULSE 28–107; RESP 15–44; TEMP 96–97.6; O2SAT 74–100
[2023-06-26] MEDS: NOREPINEPHRINE BITARTRATE 32 MG in SODIUM CHL 0.9% 218 ML IV SCH (00:22)
[2023-06-26] MEDS: SODIUM BICARBONATE 50ML VIAL 150 ML in D5W 5% 1,000 ML IV SCH ×2 (00:24→05:39)
[2023-06-26] MEDS: MIDAZOLAM DRIP 50 mg/50mL 50 ML IV SCH ×3 (00:27→07:38)
[2023-06-26] MEDS: fentaNYL Drip 2500mCg/250mlNS 250 ML IV SCH ×2 (02:39→11:30)
[2023-06-26] MEDS: VASOPRESSIN 20 UNITS in SODIUM CHL 0.9% 99 ML IV SCH (02:40)
[2023-06-26 04:54] LABS: Lactic Acid w/Reflex 28.3 mmol/L (0.4-2.0)
[2023-06-26] MEDS: EPINEPHrine HCL 250 ML IV SCH (05:39)
[2023-06-26 05:44] LABS: Hematocrit 23.9 % (36.0-46.0); Mean Corpuscular Hemoglobin 31.4 pg (28.0-32.0); Mean Corpuscular Hgb Conc. 27.3 g/dL (32.0-36.0); Mean Corpuscular Volume 114.9 fL (80.0-100.0); Red Blood Cells 2.08 10^6/uL (4.0-5.20); White Blood Cell 26.1 10^3/uL (4.4-10.8)
[2023-06-26 05:55] LABS: Red Cell Distribution Width 22.2 % (11.8-14.3)
[2023-06-26 05:56] LABS: Hemoglobin 6.5 g/dL (12.2-16.2)
[2023-06-26 05:57] LABS: Band Neutrophils % (manual) 0; Basophils % (manual) 0 (0.0-2.0); Blast Cells 0; Eosinophils % (manual) 0 (0-7); Metamyelocytes % 0; Promyelocytes % 0; Reactive Lymphocytes 0
[2023-06-26 06:02] LABS: Alanine Aminotransferase 207 U/L (7-40); Albumin 1.7 g/dL (3.2-4.8); Alkaline Phosphatase 264 U/L (46-116); Anion Gap 30.00001 (5-15); BUN/Creatinine Ratio 15.1 (10.0-20.0); Bilirubin, Total 1.2 mg/dL (0.2-1.0); Blood Urea Nitrogen 41 mg/dL (9-23); Calcium 6.3 mg/dL (8.7-10.4); Chloride 89 mmol/L (98-107); Glucose 296 mg/dL (74-106); Potassium 4.6 mmol/L (3.5-5.1); Sodium 129 mmol/L (136-145); Total Protein 3.5 g/dL (5.7-8.2)
[2023-06-26] MEDS: PROPOFOL 100 ML IV SCH (06:04)
[2023-06-26 06:12] LABS: Aspartate Aminotransferase 2743 U/L (13-40)
[2023-06-26 06:19] LABS: Carbon Dioxide < 10 mmol/L (20-30)
[2023-06-26] MEDS: LEVOTHYROXINE SODIUM 50 MCG TAB PO SCH (06:32)
[2023-06-26 07:06] LABS: Immunoglobulin G, Serum 780 mg/dL (586-1602); Immunoglobulin M 258 mg/dL (26-217)
[2023-06-26 08:01] LABS: Base Excess -30.6 mmol/L (-2.0-2.0)
[2023-06-26 08:28] LABS: Lymphocytes % (manual) 21 (10.0-50.0); Monocytes % (manual) 1 (0-12); Myelocytes % 4; Platelet Estimate Adequate
[2023-06-26] MEDS: PHENYLEPHRINE INJ 80 MG in SODIUM CHL 0.9% 242 ML IV SCH (08:30)
[2023-06-26 09:07] LABS: Albumin 1.6 g/dL (2.9-4.4); Alpha-1-Globulin 0.2 g/dL (0.0-0.4); Alpha-2-Globulin 1.1 g/dL (0.4-1.0); Gamma Globulin 0.7 g/dL (0.4-1.8); Globulin Total 3.2 g/dL (2.2-3.9); Protein Total Serum 4.8 g/dL (6.0-8.5)
[2023-06-26] MEDS: PANTOPRAZOLE 40 MG/10 ML VIAL INJ IV SCH (09:27)
[2023-06-26] MEDS: ENOXAPARIN SOD 40 MG/0.4 ML SYRINGE SC SCH (09:28)
[2023-06-26] MEDS: MEROPENEM 1GM IVPB 100 ML IV SCH (09:28)
[2023-06-26] MEDS: MUPIROCIN 2% OINT 15gm or 22gm FOR MRSA NARES EACHNOSTRI SCH (09:28)
[2023-06-26 10:07] LABS: Immunoglobulin A 824 mg/dL (87-352)
[2023-06-27] MEDS ORDERED: ENOXAPARIN SOD 30 MG/0.3 ML SYRINGE SC SCH (10:00)
== END 2023-06-26 17:30 | DRG 871 ==
LOC: ER 06:37 → EDBD 06:37 → TELE 09:43 → DOU IN ICU 17:37 → ICU WEST 17:48
PROVIDERS: ADMIT Nurse Practitioner Family; ATTEND Internal Medicine
PROC: 02HV33Z Insertion of Infusion Device into Superior Vena Cava, Percutaneous Approach (ICD-10-PCS; 2023-06-23)
PROC: 5A1945Z Respiratory Ventilation, 24-96 Consecutive Hours (ICD-10-PCS; principal; 2023-06-24)
PROC: 0BH17EZ Insertion of Endotracheal Airway into Trachea, Via Natural or Artificial Opening (ICD-10-PCS; 2023-06-24)
PROC: 04HK33Z Insertion of Infusion Device into Right Femoral Artery, Percutaneous Approach (ICD-10-PCS; 2023-06-24)
DX: A41.9 Sepsis, unspecified organism (principal); G92.8 Other toxic encephalopathy; N17.0 Acute kidney failure with tubular necrosis; I50.43 Acute on chronic combined systolic (congestive) and diastolic (congestive) heart failure; J96.20 Acute and chronic respiratory failure, unspecified whether with hypoxia or hypercapnia; R65.21 Severe sepsis with septic shock; E87.1 Hypo-osmolality and hyponatremia; K90.9 Intestinal malabsorption, unspecified; N18.4 Chronic kidney disease, stage 4 (severe); N39.0 Urinary tract infection, site not specified; Z68.41 Body mass index [BMI] 40.0-44.9, adult; E87.20 Acidosis, unspecified; L03.90 Cellulitis, unspecified; Z66 Do not resuscitate; E87.6 Hypokalemia; J44.9 Chronic obstructive pulmonary disease, unspecified; E03.9 Hypothyroidism, unspecified; E66.01 Morbid (severe) obesity due to excess calories; L89.92 Pressure ulcer of unspecified site, stage 2; D64.9 Anemia, unspecified; Z88.1 Allergy status to other antibiotic agents; Z74.01 Bed confinement status; Z88.0 Allergy status to penicillin; Z98.84 Bariatric surgery status; Z80.0 Family history of malignant neoplasm of digestive organs; Z83.3 Family history of diabetes mellitus
CPT/HCPCS: 36415; 36556; 36600; 70450; 71045; 76775; 80048; 80053; 80061; 80202; 81001; 82248; 82570; 82784; 82805; 83605; 83735; 83880; 83930; 84100; 84155; 84156; 84165; 84300; 84443; 84484; 84550; 85007; 85027; 85610; 85730; 86334; 87040; 87070; 87077; 87081; 87086; 87186; 87205; 93005; 93306; 93970; 94002; 94003; 97163; 99291; C9113; G0378; J0171; J0696; J2185; J2250; J2704; J3480; J7060